=== PATIENT | male | born 1990 | race American Indian/Alaskan Native ===

== ENCOUNTER 2022-02-26 18:49 | Inpatient (IN) | payer MEDICAID, OTHER ==
[2022-02-26] MEDS ORDERED: MAG HYDROX/AL HYDROX/SIMETH 30 ML CUP PO PRN (19:11)
[2022-02-26] MEDS ORDERED: MAGNESIUM HYDROXIDE 2,400 MG/10 ML CUP PO PRN (19:11)
[2022-02-26] MEDS ORDERED: HALOPERIDOL LACTATE 5 MG/ML 1 ML VIAL IM PRN (19:11)
[2022-02-26] MEDS ORDERED: LORazepam 2 MG/ML INJ IM PRN (19:15)
[2022-02-27] MEDS ORDERED: NICOTINE 21MG/24HR PATCH TRANSDERM SCH (09:00)
[2022-02-27] MEDS ORDERED: METHADONE 10 MG TAB PO SCH (09:00)
[2022-02-27] MEDS: NICOTINE GUM (POLACRILEX) 2 MG GUM BUCCAL PRN ×3 (11:35→19:42)
[2022-02-27] MEDS: QUEtiapine 25 MG TAB PO SCH ×3 (12:45→20:23)
[2022-02-27] MEDS: busPIRone HCl 5 MG TAB PO SCH ×4 (12:46→20:23)
[2022-02-27] MEDS: QUEtiapine 100 MG TAB PO SCH ×2 (12:46→20:23)
[2022-02-27] MEDS: LORazepam 1 MG TAB PO PRN ×2 (13:26→21:29)
[2022-02-27] MEDS ORDERED: METHADONE 10 MG TAB PO ONE (14:08)
--- NOTE | 2022-02-27 16:31 | P.CONS ---
History of Present Illness - Reason for Consult Consult date: 02/27/22 Medical management - History of Present Illness Patient is a 31-year-old male with PMH of Gullian Tilden syndrome, previous history of heroin abuse that presents to [facility] for psychiatric evaluation. He has been admitted in the mental health unit for further evaluation. We have been consulted for medical management of this patient. Patient reports neuropathic pain in his bilateral lower extremities. He reports taking Lyrica 150 mg by mouth twice a day along with methadone 130 mg by mouth daily for pain control. He is requesting his home medications be restarted. He otherwise has no complaints. He denies any headache, lower lalita edema, nausea vomiting, fever or chills, cough, chest pain, shortness breath, palpitations, changes in urination or bowel habits. No changes in appetite or weight. He denies any dizziness, numbness/weakness/tingling of the extremities. Next Review of systems has been performed and is negative except above. General: [non toxic], [no distress], [appears at stated age] Derm: [warm], [dry] Head: [atraumatic], [normocephalic], [symmetric] Eyes: [EOMI], [no lid lag], [anicteric sclera] Mouth: [no lip lesion], [mucus membranes moist] Cardiovascular: [S1S2 reg], [no murmur] Lungs: [CTA bilateral], [no rhonchi, no rales] , [no accessory muscle use] Abdominal: [soft], [ nontender to palpation], [no guarding], [no appreciable organomegaly] Ext: [no gross muscle atrophy], [no edema], [no contractures] Neuro: [ CN II-XI grossly intact], [no focal neuro deficits] Psych: [Alert], [oriented], [appropriate affect] His vital signs are being reviewed and is within normal limits. #History of Gullian Tilden syndrome #Chronic pain and history of opiate abuse #Smoker Patient be restarted on Lyrica 50 mg by mouth twice a day. He has been restarted on methadone home dose as per psychiatry. Patient has been encouraged to quit smoking. He has been offered a nicotine patch. Urinalysis, TSH, lipid panel and hemoglobin A1c ordered. Rest of management as per psychiatry. Thank you for this consultation. Please call [facility] with additional questions or concerns. Past Medical History Additional Past Medical History / Comment(s): Destinee Ramos's History of Any Multi-Drug Resistant Organisms: None Reported Past Surgical History: No Surgical Hx Reported Past Anesthesia/Blood Transfusion Reactions: No Reported Reaction Smoking Status: Current every day smoker Medications and Allergies Home Medications Medication Instructions Recorded Confirmed Type LORazepam [Ativan] 1 mg PO BID 02/27/22 02/27/22 History Magnesium 200 mg PO DAILY 02/27/22 02/27/22 History Methadone [Dolophine] 120 mg PO DAILY 02/27/22 02/27/22 History PARoxetine [Paxil] 20 mg PO DAILY 02/27/22 02/27/22 History QUEtiapine [SEROquel] 25 mg PO BID 02/27/22 02/27/22 History QUEtiapine [SEROquel] 100 mg PO HS 02/27/22 02/27/22 History busPIRone HCl [Buspar] 5 mg PO BID 02/27/22 02/27/22 History traZODone HCL [Desyrel] 100 mg PO HS 02/27/22 02/27/22 History Allergies Allergy/AdvReac Type Severity Reaction Status Date / Time No Known Allergies Allergy Verified 02/26/22 19:08 Physical Exam Vitals: Vital Signs Temp Pulse Resp BP Pulse Ox 02/27/22 10:49 97.5 F L 78 18 112/76 95 Intake and Output 02/27/22 02/27/22 02/27/22 06:59 14:59 22:59 Other: Weight 71.3 kg
[2022-02-27] MEDS: haloperidoL 5 MG TAB PO PRN (16:55)
[2022-02-27] MEDS: PREGABALIN 75 MG CAP PO SCH ×2 (16:55→21:29)
[2022-02-28] MEDS: QUEtiapine 25 MG TAB PO SCH (10:10)
[2022-02-28] MEDS: PREGABALIN 75 MG CAP PO SCH ×2 (10:10→20:02)
[2022-02-28] MEDS: METHADONE 10 MG TAB PO SCH (10:11)
[2022-02-28] MEDS: busPIRone HCl 5 MG TAB PO SCH (10:11)
--- NOTE | 2022-02-28 10:39 | P.HP ---
Psychiatric H&P - . H&P Date: 02/28/22 History & Physical: Allergies Allergy/AdvReac Type Severity Reaction Status Date / Time No Known Allergies Allergy Verified 02/26/22 19:08 Vital Signs Temp 98.7 F 02/28/22 06:42 Pulse 68 02/28/22 06:42 Resp 16 02/28/22 06:42 BP 94/51 02/28/22 06:42 Pulse Ox 95 02/27/22 10:49 FiO2 Intake & Output 02/27/22 02/28/22 02/28/22 18:59 06:59 18:59 Weight 71.3 kg 02/28/22 10:26 IDENTIFYING DATA: Patient is a 31-year-old male who currently lives with his girlfriend and is unemployed. They own a house together. She has 1 son. HPI: Patient presented to the hospital initially complaining of depression and suicidal thoughts. Patient has history of polysubstance abuse including opiate dependence on agonist therapy and methadone. Patient was transferred from [facility] on a petition and certificate. Patient was seen today for evaluation and agreeable to speak to principal technical writer. He appeared to be fairly anxious when speaking about her. He states that he is feeling more more depressed lately. He states that he is also having suicidal thoughts for the past week or so. He claims that he has been off his medications for depression for about a week now. He claims that he went to go filled medications however he is not able to get hold of his doctor to have them refilled. He states that he was recently at another psychiatric unit and does not remember which medications he supposed to be on. He states that his anxiety is also elevated. 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 He states that he has a history of cutting himself and also opiate dependence. He claims that he wanted to grab a knife and cut himself however at this time he is having suicidal thoughts however no intent or plan while on the unit. He is denying any homicidal ideations today. at this time patient denies any auditory or visual hallucinations. Patient denies any flight of ideas racing thoughts and increased in goal directed behavior. Patient admits to using cigarettes daily, claims that he smokes marijuana frequently. He states that he has been sober off of heroin for about a year now and is currently on methadone dosing at [facility]. He claims that he has a history of manic-type episodes where he has a lot of energy and does not need to sleep. PAST PSYCHIATRIC HISTORY: Patient states that she has a history of depression and anxiety. He claims that he cannot remember his medications that he is on however does remember Seroquel and Paxil. He states that he was last psychiatrically hospitalized about a month ago at [facility]. Patient denies any psychiatric outpatient follow-up. He claims that he has attempted to cut himself multiple times in the past and also hang himself. PMH: As per medicine H&P ALLERGIES: as per EMR CHEMICAL DEPENDENCY HISTORY: as per HPI FAMILY PSYCHIATRIC/SUBSTANCE USE HISTORY: denies SOCIAL HISTORY: Patient was born and raised in [place]. He states that he completed his high school and also bachelors in [employer] arts. 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 He states that he went to skilled nursing for possession about 5 years ago. He has one son and lives with his girlfriend in a house. He is unemployed. MENTAL STATUS EXAM: General Appearance: Patient appears to be thin, multiple tattoos, long hair and glasses, stated age is alert, directable, and attempts to cooperate. There is to be anxious Patient appears to have poor hygiene and grooming. Behavior: Patient is seated without any agitated behavior. Appears to be anxious. Attempts to cooperate. Speech: Patient's speech is fluent and nonpressured. Mood/Affect: Patient reports their mood is depressed and anxious, affect is congruent Suicidality/Homicidality: Patient denies having any homicidal ideation intent or plan. He claims that he is having suicidal thoughts, no intent or plan. Perceptions: Patient denies any visual hallucinations and denies any auditory hallucinations Though content/process: There is no evidence of any delusional thought content and thought process is linear and goal-directed. He is focused on his symptoms. Memory and concentration: AOX3, grossly intact for the purposes of this session. Can spell "WORLD" backwards Judgment and insight: poor STRENGTHS/WEAKNESSES: strength is that patient is resilient. Weakness is that patient has poor judgment and is impulsive INTELLECT: average IMPRESSIONS: Bipolar depression Anxiety disorder unspecified Opioid dependence, currently on agonist therapy Cannabis use disorder mild Nicotine dependence PLAN: -Patient is admitted under voluntary status to MHU for stabilization of psychiatric symptoms and safety. Patient has signed adult voluntary form and medication consent and is placed in patient's chart. -Medications : Will start patient on Zoloft 50 mg daily for mood/anxiety, increase BuSpar to 20 mg twice a day for anxiety. Decrease Seroquel to 100 mg daily at bedtime for mood stabilization/insomnia. -Ativan and Haldol PRN for agitation/aggression -Patient was counselled on substance abuse and desired to cut back on use -Patient was informed of the risks, benefits and side effects of the medication and patient verbally consented to taking the medications. Patient signed med consent form and was placed in chart. -Internal Medicine consult to perform medical evaluation and physical. -NRT - nicotine patch -SW on board for discharge planning. Encourage patient to participate in groups to work on coping skills.
[2022-02-28] MEDS: SERTRALINE 50 MG TAB PO SCH (11:17)
[2022-02-28] MEDS: LORazepam 1 MG TAB PO PRN ×2 (11:19→18:35)
[2022-02-28] MEDS: NICOTINE GUM (POLACRILEX) 2 MG GUM BUCCAL PRN ×2 (12:16→18:35)
[2022-02-28] MEDS: haloperidoL 5 MG TAB PO PRN ×2 (13:23→18:35)
[2022-02-28] MEDS: busPIRone HCl 10 MG TAB PO SCH (20:02)
[2022-02-28] MEDS: QUEtiapine 100 MG TAB PO SCH (20:02)
[2022-03-01 02:00] LABS: Chol/HDL Ratio 3.03 Ratio; LDL Cholesterol,Calculated 73.8 mg/dL (0.0-131.0)
[2022-03-01] MEDS: NICOTINE GUM (POLACRILEX) 2 MG GUM BUCCAL PRN ×4 (06:58→19:34)
[2022-03-01] MEDS: LORazepam 1 MG TAB PO PRN (06:58)
[2022-03-01] MEDS: busPIRone HCl 10 MG TAB PO SCH ×2 (08:29→20:19)
[2022-03-01] MEDS: METHADONE 10 MG TAB PO SCH (08:29)
[2022-03-01] MEDS: SERTRALINE 50 MG TAB PO SCH (08:30)
[2022-03-01] MEDS: PREGABALIN 75 MG CAP PO SCH ×2 (08:30→20:22)
--- NOTE | 2022-03-01 08:43 | P.PN ---
Progress Note - Text Progress Note Date: 03/01/22 Interval History: Patient was seen wandering the hallways after receiving medications and was di rectable and agreeable to speak with manual writer in the office. Patient was noted to be argumentative with nurse earlier on this morning and spoke about this during conversation with manual writer today. Irrigation Equipment Installer explained the privacy of others on the unit and the different rules and patient was able to verbalize understanding. He states that he is still feeling depressed and anxious and claims he feels he is doing some mild improvement with the medications. He states that he needed to take a Haldol prn last night and states that "I felt that I wasn't going to sleep last night" and then took the Seroquel and was able to sleep fairly last name. He was advised to try to limit the prns as a goal. He claims that he has been going to groups and participating as best as he can. He states that he spoke with his significant other over the phone yesterday and states that "she is worried about me getting better". He claims that he is still having suicidal thoughts however these have been improving mildly since yesterday. At this time patient denies any homical ideations, intent or plan. Patient denies any auditory, visual hallucinations and denies any paranoia or delusions. Patient denies any side effects from the medications and has been compliant with meds. Mental Status Exam: Behavior: Patient is seated without any agitated behavior. Appears to be less anxious. Attempts to cooperate. Speech: Patient's speech is fluent and nonpressured. Mood/Affect: Patient reports their mood is depressed and anxious, proving mildly, affect is congruent and constricted Suicidality/Homicidality: Patient denies having any homicidal ideation intent or plan. He claims that he is having suicidal thoughts, no intent or plan. Perceptions: Patient denies any visual hallucinations and denies any auditory hallucinations Though content/process: There is no evidence of any delusional thought content and thought process is linear and goal-directed. less focused on his symptoms. Memory and concentration: AOX3, grossly intact for the purposes of this session. Judgment and insight: poor, improving mildly IMPRESSIONS: Bipolar depression Anxiety disorder unspecified Opioid dependence, currently on agonist therapy Cannabis use disorder mild Nicotine dependence Plan: -Patient continues to meet criteria for inpatient psychiatric admission for symptom stabilization and safety. Patient has signed adult voluntary form and medication consent and was placed in patient's chart. -Medications: increase Zoloft 100 mg daily for mood/anxiety, BuSpar to 20 mg twice a day for anxiety. Increase Seroquel to 150 mg daily at bedtime for mood stabilization/insomnia. -When necessary Ativan and Haldol for agitation/aggression. -NRT - nicotine patch -SW on board for discharge planning. Encouraged the patient to participate in milieu.
[2022-03-01] MEDS ORDERED: SERTRALINE 50 MG TAB PO ONE (08:45)
[2022-03-01] MEDS: LORazepam 0.5 MG TAB PO PRN ×2 (14:52→20:22)
[2022-03-01] MEDS: QUEtiapine 100 MG TAB PO SCH (20:19)
[2022-03-02] MEDS: PREGABALIN 75 MG CAP PO SCH (08:17)
[2022-03-02] MEDS: busPIRone HCl 10 MG TAB PO SCH (08:18)
[2022-03-02] MEDS: METHADONE 10 MG TAB PO SCH (08:18)
[2022-03-02] MEDS: ACETAMINOPHEN TAB 325 MG TAB PO PRN (08:19)
[2022-03-02] MEDS: NICOTINE GUM (POLACRILEX) 2 MG GUM BUCCAL PRN ×3 (08:23→18:19)
[2022-03-02] MEDS ORDERED: SERTRALINE 100 MG TAB PO SCH (09:00)
[2022-03-02] MEDS: LORazepam 0.5 MG TAB PO PRN ×2 (10:08→18:19)
--- NOTE | 2022-03-02 10:36 | P.PN ---
Progress Note - Text Progress Note Date: 03/02/22 Interval History: Patient was seen wandering the hallways after receiving medications this morning and was directable and agreeable to speak with video games storywriter in the office. Patient appears to be more directable during conversation today however continues to report significant anxiety. He also states that he still feeling depressed and was having suicidal thoughts earlier. He did not have any plan at all. He claims that medications have been helping however was mainly focused on receiving more medications for his anxiety. He claims that he is going to some groups at this time however was fairly vague about what he is learning. He states that he was not able to sleep very well last night however did still report about 5-6 hours. He claims that he would like to try Seroquel in the morning. We discussed other options for medications including Vistaril when necessary which she is agreeable to try. Claims have fair appetite. At this time patient denies any homical ideations, intent or plan. Patient denies any auditory, visual hallucinations and denies any paranoia or delusions. Patient denies any side effects from the medications and has been compliant with meds. Mental Status Exam: Behavior: Patient is seated without any agitated behavior. Appears to be anxious. Attempts to cooperate. Speech: Patient's speech is fluent and nonpressured. shaky Mood/Affect: Patient reports their mood is depressed and anxious, improving mildly, affect is congruent and constricted Suicidality/Homicidality: Patient denies having any homicidal ideation intent or plan. He claims that he is having suicidal thoughts, no intent or plan. Perceptions: Patient denies any visual hallucinations and denies any auditory hallucinations Though content/process: There is no evidence of any delusional thought content and thought process is linear and goal-directed. focuse on his anxiety and me dications. Memory and concentration: AOX3, grossly intact for the purposes of this session. Judgment and insight: poor, improving mildly IMPRESSIONS: Bipolar depression Anxiety disorder unspecified Opioid dependence, currently on agonist therapy Cannabis use disorder mild Nicotine dependence Plan: -Patient continues to meet criteria for inpatient psychiatric admission for symptom stabilization and safety. Patient has signed adult voluntary form and medication consent and was placed in patient's chart. -Medications: increase Zoloft 150 mg daily for mood/anxiety, BuSpar to 30 mg twice a day for anxiety. Increase Seroquel to 150 mg daily at bedtime + 50 mg daily for mood stabilization/insomnia. added vistaril prn for anxiety. -When necessary Ativan and Haldol for agitation/aggression. -NRT - nicotine patch -SW on board for discharge planning. Encouraged the patient to participate in milieu. likely discharge back home next week once patient is more psychiatrically stabilized
[2022-03-02] MEDS: QUEtiapine 50 MG TAB PO SCH (10:40)
[2022-03-02 10:47] LABS: Appearance,Urine Clear (Clear); Bilirubin,Urine Negative (Negative); Blood,Urine Negative (Negative); Color,Urine Yellow; Glucose,Urine (UA) Negative (Negative); Ketones,Urine Negative (Negative); Leukocyte Esterase,Urine Negative (Negative); Nitrite,Urine Negative (Negative); Protein,Urine Negative (Negative); Specific Gravity,Urine 1.013 (1.001-1.035); Urobilinogen,Urine <2.0 mg/dL (<2.0)
[2022-03-03] MEDS: busPIRone HCl 10 MG TAB PO SCH ×3 (01:53→20:17)
[2022-03-03] MEDS: PREGABALIN 75 MG CAP PO SCH ×3 (01:53→20:21)
[2022-03-03] MEDS: QUEtiapine 100 MG TAB PO SCH ×2 (01:54→20:18)
[2022-03-03] MEDS: NICOTINE GUM (POLACRILEX) 2 MG GUM BUCCAL PRN ×3 (07:48→18:24)
[2022-03-03] MEDS: ACETAMINOPHEN TAB 325 MG TAB PO PRN (07:48)
[2022-03-03] MEDS: SERTRALINE 50 MG TAB PO SCH (08:33)
[2022-03-03] MEDS: QUEtiapine 50 MG TAB PO SCH (08:33)
[2022-03-03] MEDS: METHADONE 10 MG TAB PO SCH (08:35)
[2022-03-03] MEDS: hydrOXYzine pamoate 25 MG CAP PO PRN (09:38)
[2022-03-03] MEDS: LORazepam 0.5 MG TAB PO PRN ×2 (11:03→20:21)
--- NOTE | 2022-03-03 20:58 | P.PN ---
Progress Note - Text Progress Note Date: 03/03/22 Interval History: Patient was directable and agreeable to speak with justowriter operator in the office. He rep orts improved sleep last night, reports good mood and appetite. At this time patient denies any homical ideations, intent or plan. Patient denies any auditory, visual hallucinations and denies any paranoia or delusions. Patient denies any side effects from the medications and has been compliant with meds. Mental Status Exam: Appearance: Appears stated age Behavior: Patient is not agitated. Attempts to cooperate. Speech: Patient's speech is fluent and nonpressured. Mood/Affect: Patient reports their mood is "pretty good today", affect is euthymic Suicidality/Homicidality: Patient denies having any homicidal or suicidal ideation intent or plan. Perceptions: Patient denies any visual hallucinations and denies any auditory hallucinations Though content/process: There is no evidence of any delusional thought content and thought process is linear and goal-directed. Memory and concentration: AOX3, grossly intact for the purposes of this session. Judgment and insight: improving mildly IMPRESSIONS: Bipolar depression Anxiety disorder unspecified Opioid dependence, currently on agonist therapy Cannabis use disorder mild Nicotine dependence Plan: -Patient continues to meet criteria for inpatient psychiatric admission for symptom stabilization and safety. -Medications: Continue Zoloft 150 mg daily for mood/anxiety, and BuSpar to 30 mg twice a day for anxiety. Continue Seroquel 150 mg daily at bedtime + 50 mg daily for mood stabilization/insomnia. Continue vistaril prn for anxiety. -When necessary Ativan and Haldol for agitation/aggression. -NRT - nicotine patch - Encouraged the patient to participate in milieu.
[2022-03-04] MEDS: busPIRone HCl 10 MG TAB PO SCH ×2 (08:28→20:07)
[2022-03-04] MEDS: SERTRALINE 50 MG TAB PO SCH (08:28)
[2022-03-04] MEDS: METHADONE 10 MG TAB PO SCH (08:28)
[2022-03-04] MEDS: QUEtiapine 50 MG TAB PO SCH (08:28)
[2022-03-04] MEDS: PREGABALIN 75 MG CAP PO SCH ×2 (08:28→20:07)
[2022-03-04] MEDS: LORazepam 0.5 MG TAB PO PRN (08:29)
[2022-03-04] MEDS: ACETAMINOPHEN TAB 325 MG TAB PO PRN ×2 (08:30→17:18)
[2022-03-04] MEDS: NICOTINE GUM (POLACRILEX) 2 MG GUM BUCCAL PRN ×4 (08:48→20:06)
[2022-03-04] MEDS: hydrOXYzine pamoate 25 MG CAP PO PRN (11:55)
[2022-03-04] MEDS ORDERED: PROPRANOLOL 10 MG TAB PO PRN (14:40)
--- NOTE | 2022-03-04 14:44 | P.PN ---
Progress Note - Text Progress Note Date: 03/04/22 Interval History: Patient was directable and agreeable to speak with chart writer. He reports good sleep and appetite, denies depressed mood but continues to endorse anxiety. He asks if his anxiety medication can be increased and we discussed a trial of Propranolol as needed for anxiety and he agrees. At this time patient denies any homicidal ideations, intent or plan. Patient denies any auditory, visual hallucinations and denies any paranoia or delusions. Patient denies any side effects from the m edications and has been compliant with meds. Mental Status Exam: Appearance: Appears stated age, clean casual attire Behavior: Patient is not agitated. Attempts to cooperate. Speech: Patient's speech is fluent and nonpressured. Mood/Affect: Patient reports their mood is "ok but still anxious", affect is congruent Suicidality/Homicidality: Patient denies having any homicidal or suicidal ideation intent or plan. Perceptions: Patient denies any visual hallucinations and denies any auditory hallucinations Though content/process: There is no evidence of any delusional thought content and thought process is linear and goal-directed. Memory and concentration: AOX3, grossly intact for the purposes of this session. Judgment and insight: Improving mildly IMPRESSIONS: Bipolar depression Anxiety disorder unspecified Opioid dependence, currently on agonist therapy Cannabis use disorder mild Nicotine dependence Plan: -Patient continues to meet criteria for inpatient psychiatric admission for symptom stabilization and safety. -Medications: Continue Zoloft 150 mg daily for mood/anxiety, and BuSpar 30 mg twice a day for anxiety. Continue Seroquel 150 mg daily at bedtime + 50 mg daily for mood stabilization/insomnia. Continue vistaril prn for anxiety. Start Propranolol 10 mg TID PRN for anxiety. -When necessary Ativan and Haldol for agitation/aggression. -NRT - nicotine patch -Encouraged the patient to participate in milieu.
[2022-03-04] MEDS: QUEtiapine 100 MG TAB PO SCH (20:07)
[2022-03-05] MEDS: METHADONE 10 MG TAB PO SCH (08:38)
[2022-03-05] MEDS: QUEtiapine 50 MG TAB PO SCH (08:40)
[2022-03-05] MEDS: PREGABALIN 75 MG CAP PO SCH (08:40)
[2022-03-05] MEDS: busPIRone HCl 10 MG TAB PO SCH (08:40)
[2022-03-05] MEDS: SERTRALINE 50 MG TAB PO SCH (08:40)
[2022-03-05] MEDS: NICOTINE GUM (POLACRILEX) 2 MG GUM BUCCAL PRN ×2 (08:44→19:00)
[2022-03-05 09:18] VITALS: BP 116/72; PULSE 86; RESP 18; TEMP 101.4
[2022-03-05] MEDS ORDERED: SERTRALINE 50 MG TAB PO STA (11:07)
--- NOTE | 2022-03-05 11:50 | P.DS ---
Providers Date of admission: 02/27/22 09:47 Expected date of discharge: 03/05/22 Attending physician: Perry Forrest MD Consults: 02/26/22 19:11 Consult Physician Routine Consulting Provider: Diana Jacome Consult Reason/Comments: H and P Do you want consulting provider notified?: Yes Primary care physician: Perry Forrest MD - Discharge Diagnosis(es) (1) Bipolar depression Current Visit: Yes Status: Acute Priority: High (2) Anxiety disorder Current Visit: Yes Status: Acute Priority: Medium (3) Opioid dependence on agonist therapy Current Visit: Yes Status: Acute Priority: Medium (4) Cannabis use disorder, mild, abuse Current Visit: Yes Status: Acute Priority: Medium (5) Nicotine dependence Current Visit: Yes Status: Acute Priority: Low Hospital Course: Admission HPI: Admission note was completed by keno writer/runner "Patient is a 31-year-old male who currently lives with his girlfriend and is unemployed. They own a house together. She has 1 son. Patient presented to the hospital initially complaining of depression and suicidal thoughts. Patient has history of polysubstance abuse including opiate dependence on agonist therapy and methadone. Patient was transferred from [facility] on a petition and certificate. Patient was seen today for evaluation and agreeable to speak to keno writer/runner. He appeared to be fairly anxious when speaking about her. He states that he is feeling more more depressed lately. He states that he is also having suicidal thoughts for the past week or so. He claims that he has been off his medications for depression for about a week now. He claims that he went to go filled medications however he is not able to get hold of his doctor to have them refilled. He states that he was recently at another psychiatric unit and does not remember which medications he supposed to be on. He states that his anxiety is also elevated. 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 He states that he has a history of cutting himself and also opiate dependence. He claims that he wanted to grab a knife and cut himself however at this time he is having suicidal thoughts however no intent or plan while on the unit. He is denying any homicidal ideations today. at this time patient denies any auditory or visual hallucinations. Patient denies any flight of ideas racing thoughts and increased in goal directed behavior. Patient admits to using cigarettes daily, claims that he smokes marijuana frequently. He states that he has been sober off of heroin for about a year now and is currently on methadone dosing at [facility]. He claims that he has a history of manic-type episodes where he has a lot of energy and does not need to sleep." Hospital course: Upon admission to the unit patient was directable and agreeable to commence treatment and signed adult voluntary form . Patient got along well with other patients on the unit and followed unit protocol. Patient was compliant with the medications and denied any side effects throughout hospital course. Patient was started on Zoloft and increased to a dose of 200 mg daily for mood/anxiety. Patient was also started on BuSpar increased to a dose of 30 mg twice a day for anxiety, patient was agreeable to try Seroquel for mood adjunct/insomnia/anxiety. Patient was started on Seroquel and increased to a dose of 200 mg daily at bedtime +50 mg daily. Propranolol when necessary for anxiety. Patient spoke of his stressors and engaged in therapy both group and individual. Patient was also seen by medical team for history and physical exam. Throughout the course of the hospitalization patient gradually improved with regards to mood, anxiety, sleep and returned back to their baseline level of functioning. Patient did develop fever, cough and malaise and tested positive for covid-19 while on the unit and had to isolate in his room. On the day of discharge patient denied any suicidal or homicidal ideations intent or plan denied any auditory or visual hallucinations. Patient endorsed wanting to live for his future and for life. The patient denied any access to guns or weapons. Patient denied any paranoia and did not endorse any delusions. Patient does have a significant history of substance abuse and was counseled on abstaining from all substances including alcohol and marijuana. Patient was offered however declined inpatient substance-abuse rehab. Patient was also counseled on the medications and need for regular compliance and was encouraged to follow-up with their outpatient appointment for mental health and also for primary care. Prior to discharge a family meeting will be arranged by social work nurse to answer any questions and ensure safety upon discharge. Mental status exam: General Appearance: Patient appears to be tall, wearing glasses, stated age is alert, pleasant, and cooperative. Patient is in no acute distress and has imp roved hygiene and grooming Behavior: Patient is calmly seated without any agitated behavior. Speech: Patient's speech is fluent and nonpressured. Mood/Affect: Patient reports their mood is "better", affect is congruent. Suicidality/Homicidality: Patient denies having any suicidal or homicidal ideation intent or plan. Perceptions: Patient denies any auditory or visual hallucinations. Though content/process: There is no evidence of any delusional thought content and thought process is linear and goal-directed. more future oriented Memory and concentration: AOX3, grossly intact for the purposes of this session. Can spell "WORLD" backwards correctly. Judgment and insight: chronically poor, however has improved with guarded prognosis Impression: Bipolar depression Cannabis use disorder mild Opioid dependence currently on agonist therapy Anxiety disorder unspecified Nicotine dependence Plan: -Continue with discharge today as patient has improved and stabilized psychiatrically and is not currently an imminent threat to himself and/or others. Patient will remain at chronically elevated risk for harm to self and/or others due to his impulsivity and polysubstance abuse. -Continue medications: Seroquel 200 mg daily at bedtime +50 mg daily for mood stabilization/sleep, BuSpar 30 mg twice a day for anxiety, Zoloft 200 mg daily for mood/anxiety, propranolol 10 mg twice a day when necessary for anxiety. -Patient was counseled on the need for medication compliance and appropriate follow-up at mental health and also primary care for medical issues. Patient verbalized understanding and agreed. -Social work to arrange for and conduct family meeting to ensure safety upon discharge and answer any questions/concerns. Social work also to arrange for patients follow up appointments with [facility] for psychiatric care along with follow up with primary care provider. -Patient counseled on abstaining from recreational drugs and marijuana and alcohol. Was informed/educated on the adverse effects on their physical and mental health. Patient verbally agreed and understood. Patient was offered substance abuse treatment however declined at this time. -Patient was instructed to return to the hospital or seek immediate medical care if their psychiatric or medical symptoms do worsen or reoccur. Allergies Allergy/AdvReac Type Severity Reaction Status Date / Time No Known Allergies Allergy Verified 02/26/22 19:[address] Glu mg/dL 97 02/28/22 14:04 Hemoglobin A1c 5.0 % (0.0-6.0) 02/28/22 14:04 Triglycerides 140.00 mg/dL (0.00-149.00) 02/28/22 14:04 Cholesterol 152.00 mg/dL (0.00-200.00) 02/28/22 14:04 LDL Cholesterol, Calc 73.8 mg/dL (0.0-131.0) 02/28/22 14:04 VLDL Cholesterol, Calc 28.00 mg/dL (5.00-40.00) 02/28/22 14:04 HDL Cholesterol 50.20 mg/dL (40.00-60.00) 02/28/22 14:04 Cholesterol/HDL Ratio 3.03 Ratio 02/28/22 14:04 TSH 1.230 mIU/L (0.465-4.680) 02/28/22 14:04 Urine Color Yellow 03/02/22 10:23 Urine Appearance Clear (Clear) 03/02/22 10:23 Urine pH 7.0 (5.0-8.0) 03/02/22 10:23 Ur Specific [place] 1.013 (1.001-1.035) 03/02/22 10:23 Urine Protein Negative (Negative) 03/02/22 10:23 Urine Glucose (UA) Negative (Negative) 03/02/22 10:23 Urine Ketones Negative (Negative) 03/02/22 10:23 Urine Blood Negative (Negative) 03/02/22 10:23 Urine Nitrite Negative (Negative) 03/02/22 10:23 Urine Bilirubin Negative (Negative) 03/02/22 10:23 Urine Urobilinogen <2.0 mg/dL (<2.0) 03/02/22 10:23 Ur Leukocyte Esterase Negative (Negative) 03/02/22 10:23 Coronavirus (PCR) Detected (Not Detectd) A 03/05/22 09:03 Vital Signs Temp 101.4 F H 03/05/22 09:16 Pulse 86 03/05/22 09:16 Resp 18 03/05/22 09:16 BP 116/72 03/05/22 09:16 Pulse Ox 99 03/05/22 06:45 FiO2 Intake & Output 03/04/22 03/05/22 03/05/22 18:59 06:59 18:59 Weight 77.5 kg Patient Condition at Discharge: Stable Plan - Discharge Summary Discharge Rx Participant: No New Discharge Prescriptions: New Methadone [Dolophine] 130 mg PO DAILY tab Pregabalin [Lyrica] 150 mg PO BID 14 Days cap Nicotine Gum (Polacrilex) [Nicorette] 2 mg BUCCAL Q4HR PRN 28 Days pieceofgum PRN Reason: Nicotine Cravings QUEtiapine [SEROquel] 200 mg PO HS 30 Days tab hydrOXYzine pamoate [Vistaril] 25 mg PO BID PRN 14 Days cap PRN Reason: Anxiety busPIRone HCl [Buspar] 30 mg PO BID 30 Days tab Propranolol [Inderal] 10 mg PO BID PRN 14 Days tab PRN Reason: Anxiety QUEtiapine [SEROquel] 50 mg PO DAILY 30 Days tab Sertraline [Zoloft] 200 mg PO DAILY 30 Days tab Discontinued QUEtiapine [SEROquel] 100 mg PO HS QUEtiapine [SEROquel] 25 mg PO BID PARoxetine [Paxil] 20 mg PO DAILY busPIRone HCl [Buspar] 5 mg PO BID traZODone HCL [Desyrel] 100 mg PO HS LORazepam [Ativan] 1 mg PO BID Methadone [Dolophine] 130 mg PO DAILY Magnesium 200 mg PO DAILY Discharge Medication List Methadone [Dolophine] 130 mg PO DAILY tab 03/05/22 [Rx] Nicotine Gum (Polacrilex) [Nicorette] 2 mg BUCCAL Q4HR PRN 28 Days pieceofgum 03/05/22 [Rx] Pregabalin [Lyrica] 150 mg PO BID 14 Days cap 03/05/22 [Rx] Propranolol [Inderal] 10 mg PO BID PRN 14 Days tab 03/05/22 [Rx] QUEtiapine [SEROquel] 50 mg PO DAILY 30 Days tab 03/05/22 [Rx] QUEtiapine [SEROquel] 200 mg PO HS 30 Days tab 03/05/22 [Rx] Sertraline [Zoloft] 200 mg PO DAILY 30 Days tab 03/05/22 [Rx] busPIRone HCl [Buspar] 30 mg PO BID 30 Days tab 03/05/22 [Rx] hydrOXYzine pamoate [Vistaril] 25 mg PO BID PRN 14 Days cap 03/05/22 [Rx] Activity/Diet/Wound Care/Special Instructions: Avoid the use of street drugs and alcohol. Take all prescriptions as prescribed. When you are in need of refills on your medications, please contact your medical provider and/or outpatient psychiatrist to have this done. Please go to scheduled outpatient appointment for aftercare treatment. If symptoms return or become worse, call the crisis line at and/or go to the nearest emergency room for evaluation. Discharge Disposition: HOME SELF-CARE
[2022-03-05] MEDS: LORazepam 0.5 MG TAB PO PRN (14:01)
[2022-03-05] MEDS ORDERED: QUEtiapine 200 MG TAB PO SCH (21:00)
[2022-03-06] MEDS ORDERED: SERTRALINE 100 MG TAB PO SCH (09:00)
== END 2022-03-05 19:13 | disposition home or self-care (01) | DRG 885 ==
LOC: 3MHU 02-27 09:47
PROVIDERS: ADMIT Psychiatry & Neurology Psychiatry; ATTEND Psychiatry & Neurology Psychiatry
DX: F31.30 Bipolar disorder, current episode depressed, mild or moderate severity, unspecified (principal); U07.1 COVID-19; F11.20 Opioid dependence, uncomplicated; R45.851 Suicidal ideations; F12.10 Cannabis abuse, uncomplicated; G89.29 Other chronic pain; F17.210 Nicotine dependence, cigarettes, uncomplicated; F41.9 Anxiety disorder, unspecified; G47.00 Insomnia, unspecified; Z79.899 Other long term (current) drug therapy; Z91.52 Personal history of nonsuicidal self-harm; Z56.0 Unemployment, unspecified; Z71.51 Drug abuse counseling and surveillance of drug abuser
CPT/HCPCS: 80061; 81003; 83036; 84443; 87635; 93005

== ENCOUNTER 2023-05-06 15:33 | Emergency (ER) | payer OTHER ==
[2023-05-06 15:49] VITALS: RESP 18
[2023-05-06] MEDS ORDERED: LORazepam 2 MG/ML INJ IM STA (16:24)
--- NOTE | 2023-05-06 16:36 | ED ---
General Adult HPI - General Chief complaint: Alcohol Stated complaint: detox Time Seen by Provider: 05/06/23 16:03 Source: patient, RN notes reviewed, old records reviewed Mode of arrival: ambulatory Limitations: no limitations - History of Present Illness Initial comments: 2-year-old male presenting for evaluation of tremor. Patient states he is curre ntly detoxing from alcohol. He is abstain for the past 10 days he has been at [facility] [place]. He has not had a drink in the past 10 days. Patient apparently has been on Ativan protocol and he is currently taking 1 mg Ativan twice daily according to the patient. He does have a fine tremor but has had no seizure activity. He is alert and oriented. His vitals are stable. - Related Data Previous Rx's Medication Instructions Recorded Methadone [Dolophine] 130 mg PO DAILY tab 03/05/22 Nicotine Gum (Polacrilex) 2 mg BUCCAL Q4HR PRN 28 Days 03/05/22 [Nicorette] pieceofgum Pregabalin [Lyrica] 150 mg PO BID 14 Days cap 03/05/22 Propranolol [Inderal] 10 mg PO BID PRN 14 Days tab 03/05/22 QUEtiapine [SEROquel] 50 mg PO DAILY 30 Days tab 03/05/22 QUEtiapine [SEROquel] 200 mg PO HS 30 Days tab 03/05/22 Sertraline [Zoloft] 200 mg PO DAILY 30 Days tab 03/05/22 busPIRone HCl [Buspar] 30 mg PO BID 30 Days tab 03/05/22 hydrOXYzine pamoate [Vistaril] 25 mg PO BID PRN 14 Days cap 03/05/22 Allergies Allergy/AdvReac Type Severity Reaction Status Date / Time No Known Allergies Allergy Verified 05/06/23 15:38 Review of Systems ROS Statement: Those systems with pertinent positive or pertinent negative responses have been documented in the HPI. ROS Other: All systems not noted in ROS Statement are negative. Past Medical History Past Medical History: Seizure Disorder Additional Past Medical History / Comment(s): Tee Mitchell, Parasythamy's. seizure with withdrawl History of Any Multi-Drug Resistant Organisms: None Reported Past Surgical History: No Surgical Hx Reported Past Anesthesia/Blood Transfusion Reactions: No Reported Reaction Past Psychological History: Anxiety, Depression, PTSD Smoking Status: Current every day smoker General Exam Limitations: no limitations General appearance: alert, in no apparent distress Head exam: Present: atraumatic, normocephalic Eye exam: Present: normal appearance, PERRL ENT exam: Present: normal exam Neck exam: Present: normal inspection. Absent: tenderness, meningismus Respiratory exam: Present: normal lung sounds bilaterally. Absent: respiratory distress, wheezes Cardiovascular Exam: Present: regular rate, normal rhythm GI/Abdominal exam: Present: soft. Absent: distended, tenderness Extremities exam: Present: normal inspection, normal capillary refill Neurological exam: Present: alert, oriented X3, CN II-XII intact. Absent: motor sensory deficit Psychiatric exam: Present: normal affect, normal mood Skin exam: Present: warm, dry, intact Course Vital Signs 05/06/23 15:35 Temperature 99.4 F Pulse Rate 74 Respiratory 18 Rate Blood Pressure 135/87 O2 Sat by Pulse 96 Oximetry Medical Decision Making - Medical Decision Making Was pt. sent in by a medical professional or institution (, PA, [employer], urgent care, hospital, or jail...) When possible be specific @ -No Did you speak to anyone other than the patient for history (EMS, parent, family, police, friend...)? What history was obtained from this source @ -No Did you review nursing and triage notes (agree or disagree)? Why? @ -I reviewed and agree with nursing and triage notes Were old charts reviewed (outside hosp., previous admission, EMS record, old EKG, old radiological studies, urgent care reports/EKG's, jail records)? Report findings @ -No old charts were reviewed Differential Diagnosis (chest pain, altered mental status, abdominal pain women, abdominal pain men, vaginal bleeding, weakness, fever, dyspnea, syncope, headache, dizziness, GI bleed, back pain, seizure, CVA, palpatations, mental health, musculoskeletal)? @ -[Alcohol withdrawal, delirium tremens EKG interpreted by me (3pts min.). @ -As above X-rays interpreted by me (1pt min.). @ -None done CT interpreted by me (1pt min.). @ -None done U/S interpreted by me (1pt. min.). @ -None done What testing was considered but not performed or refused? (CT, X-rays, U/S, labs)? Why? @ -None What meds were considered but not given or refused? Why? @ -None Did you discuss the management of the patient with other professionals (professionals i.e. , PA, [employer], lab, RT, psych nurse, clinical social work therapist, explosive ordnance disposal specialist, teacher, operational intelligence officer, casework manager)? Give summary @ -No Was smoking cessation discussed for >3mins.? @ -No Was critical care preformed (if so, how long)? @ -No Were there social determinants of health that impacted care today? How? (Homelessness, low income, unemployed, alcoholism, drug addiction, transportation, low edu. Level, literacy, decrease access to med. care, snf, rehab)? @ -Alcohol abuse Was there de-escalation of care discussed even if they declined (Discuss DNR or withdrawal of care, Hospice)? DNR status @ -No What co-morbidities impacted this encounter? (DM, HTN, Smoking, COPD, CAD, Cancer, CVA, ARF, Chemo, Hep., AIDS, mental health diagnosis, sleep apnea, morbid obesity)? @ Alcohol abuse Was patient admitted / discharged? Hospital course, mention meds given and route, prescriptions, significant lab abnormalities, going to OR and other pertinent info. @ 32-year-old male with tremor, currently 10 days sober. Patient is otherwise well-appearing, stable vitals, no signs of hallucination, no vital sign instability. I think patient should return to [facility] for continued treatment per their protocol. Undiagnosed new problem with uncertain prognosis? @ -No Drug Therapy requiring intensive monitoring for toxicity (Heparin, Nitro, Insulin, Cardizem)? @ -No Were any procedures done? @ -No Diagnosis/symptom? @ Anxiety and tremor Acute, or Chronic, or Acute on Chronic? @ -Acute Uncomplicated (without systemic symptoms) or Complicated (systemic symptoms)? @ -default Side effects of treatment? @ -[No] Exacerbation, Progression, or Severe Exacerbation? @ -[No] Poses a threat to life or bodily function? How? (Chest pain, [place], NH, pneumonia, PE, COPD, DKA, ARF, appy, cholecystitis, CVA, Diverticulitis, Homicidal, Suicidal, threat to staff... and all critical care pts) @ -[Low risk at this time Disposition Clinical Impression: Anxiety disorder Disposition: HOME SELF-CARE Condition: Fair Instructions (If sedation given, give patient instructions): Alcohol Use Disorder (ED) Additional Instructions: Please return to [facility] and followed the protocol they have advised. Is patient prescribed a controlled substance at d/c from ED?: No Referrals: None,Stated [Primary Care Provider] - 1-2 days Time of Disposition: 16:36
[2023-05-06 17:43] VITALS: BP 135/83; PULSE 69; TEMP 98.4
== END 2023-05-06 17:38 | disposition home or self-care (01) ==
LOC: EC 15:33
DX: F41.9 Anxiety disorder, unspecified (principal); F17.200 Nicotine dependence, unspecified, uncomplicated
CPT/HCPCS: 99284; 96372; J2060

== ENCOUNTER 2023-09-14 11:46 | Inpatient (IN) | payer OTHER ==
[2023-09-14] MEDS ORDERED: LORazepam 2 MG/ML INJ IV PRN (12:20)
[2023-09-14] MEDS: LORazepam 2 MG/ML INJ IV STA (12:37)
[2023-09-14] MEDS: SODIUM CHLORIDE 0.9% 500 ML 500 ML IV STA (12:38)
[2023-09-14] MEDS: SODIUM CHLORIDE 0.9% 1,000 ML IV STA ×2 (12:38)
[2023-09-14 12:55] LABS: Basophils # (A) 0.1 k/uL (0-0.2); Basophils % (A) 1 %; Eosinophils # (A) 0.4 k/uL (0-0.7); Eosinophils % (A) 6 %; HCT 39.7 % (39.0-53.0); HGB 12.9 gm/dL (13.0-17.5); Lymphocytes # (A) 3.1 k/uL (1.0-4.8); Lymphocytes % (A) 43 %; MCH 28.4 pg (25.0-35.0); MCHC 32.6 g/dL (31.0-37.0); Mean Platelet Volume 7.3; Monocytes # (A) 0.2 k/uL (0-1.0); Monocytes % (A) 2 %; Neutrophils # (A) 3.4 k/uL (1.3-7.7); Neutrophils % (A) 47 %; Platelet Count 299 k/uL (150-450); RBC 4.56 m/uL (4.30-5.90); RDW 12.5 % (11.5-15.5); WBC 7.3 k/uL (3.8-10.6)
[2023-09-14 13:12] LABS: ALT 33 U/L (4-49); AST 45 U/L (17-59); African American GFR (CKD) >90 (>60 ml/min/1.73 sqM); Alcohol <10 mg/dL; Alkaline Phosphatase 70 U/L (38-126); Anion Gap 5 mmol/L; Blood Urea Nitrogen 10 mg/dL (9-20); Calcium 9.4 mg/dL (8.4-10.2); Carbon Dioxide 25 mmol/L (22-30); Chloride 107 mmol/L (98-107); Glucose 90 mg/dL (74-99); Lipase 44 U/L (23-300); Non-African American GFR(CKD) >90 (>60 ml/min/1.73 sqM); Phosphorus 4.5 mg/dL (2.5-4.5); Sodium 137 mmol/L (137-145); Total Bilirubin 0.5 mg/dL (0.2-1.3); Total Protein 6.8 g/dL (6.3-8.2)
--- NOTE | 2023-09-14 13:26 | ED ---
Alcohol HPI - General Chief Complaint: Alcohol Stated Complaint: Hallucinations Time Seen by Provider: 09/14/23 12:19 Source: patient, RN notes reviewed, old records reviewed Mode of arrival: ambulatory Limitations: no limitations - History of Present Illness Initial Comments: This is a 32-year-old male to the ER for evaluation Patient presents today for evaluation regards to shaking weakness altered mental status hallucinations and not feeling well. Patient is having persistent symptoms here in the ER very shaky very lightheaded very dizzy with symptoms of diaphoresis. MD Complaint: alcohol withdrawal Last Drink: unknown -: days(s) Previous Visits for Alcohol Intoxication?: Yes Recent Trauma: Yes Associated Symptoms: nausea, vomiting Treatments Prior to Arrival: none Chronic Alcohol Use: Yes - Related Data Home Medications Medication Instructions Recorded Confirmed Acetaminophen Tab [Tylenol] 650 mg PO QID PRN 09/14/23 09/14/23 Calcium Phos/D3/Magnesium/Zinc 1 tab PO TID PRN 09/14/23 09/14/23 [Cfkwzvp-Led-Qfmz-Vitamin D3] Chlorpheniramine Maleate 4 mg PO Q4H PRN 09/14/23 09/14/23 [Chlor-Trimeton] Escitalopram [Lexapro] 10 mg PO DAILY 09/14/23 09/14/23 Hyoscyamine Sulfate [Levsin] 0.125 mg PO QID PRN 09/14/23 09/14/23 Ibuprofen [Motrin Ib] 600 mg PO Q6H PRN 09/14/23 09/14/23 LORazepam [Ativan] 1 - 2 mg PO Q4-6H PRN 09/14/23 09/14/23 Loperamide HCl [Imodium A-D] 4 mg PO QID PRN 09/14/23 09/14/23 Mag Hydrox/Aluminum Hyd/Simeth 30 ml PO Q4H PRN 09/14/23 09/14/23 [Mylanta Maximum Strength Liq] Methadone [Dolophine] See Taper PO DIRECTED 09/14/23 09/14/23 Multivitamins, Thera [Multivitamin 1 tab PO DAILY 09/14/23 09/14/23 (formulary)] Thiamine [Vitamin B-1] 100 mg PO DAILY 09/14/23 09/14/23 busPIRone HCl [Buspar] 10 mg PO TID@0615,1130,1630 09/14/23 09/14/23 ondansetron HCL [Zofran] 8 mg PO Q6H PRN 09/14/23 09/14/23 traZODone HCL [Desyrel] 50 - 150 mg PO HS 09/14/23 09/14/23 Previous Rx's Medication Instructions Recorded Folic Acid 1 mg PO DAILY #30 tab 09/18/23 chlordiazePOXIDE HCl [Librium] 25 mg PO TID #6 cap 09/18/23 Allergies Allergy/AdvReac Type Severity Reaction Status Date / Time No Known Allergies Allergy Verified 09/21/23 13:29 Review of Systems ROS Statement: Those systems with pertinent positive or pertinent negative responses have been documented in the HPI. ROS Other: All systems not noted in ROS Statement are negative. Past Medical History Past Medical History: Seizure Disorder Additional Past Medical History / Comment(s): Tee Mitchell, Destinee's. seizure with withdrawl History of Any Multi-Drug Resistant Organisms: None Reported Past Surgical History: No Surgical Hx Reported Past Anesthesia/Blood Transfusion Reactions: No Reported Reaction Past Psychological History: Anxiety, Depression, PTSD Smoking Status: Current every day smoker Past Alcohol Use History: Abuse Past Drug Use History: Heroin, Prescription Drug Abuse General Exam Limitations: no limitations General appearance: alert, in no apparent distress Head exam: Present: atraumatic, normocephalic, normal inspection Eye exam: Present: normal appearance, PERRL, EOMI. Absent: scleral icterus, conjunctival injection, periorbital swelling ENT exam: Present: normal exam, mucous membranes moist Neck exam: Present: normal inspection. Absent: tenderness, meningismus, lymphadenopathy Respiratory exam: Present: normal lung sounds bilaterally. Absent: respiratory distress, wheezes, rales, rhonchi, stridor Cardiovascular Exam: Present: regular rate, normal rhythm, normal heart sounds. Absent: systolic murmur, diastolic murmur, rubs, gallop, clicks GI/Abdominal exam: Present: soft, normal bowel sounds. Absent: distended, tenderness, guarding, rebound, rigid Extremities exam: Present: normal inspection, full ROM, normal capillary refill. Absent: tenderness, pedal edema, joint swelling, calf tenderness Back exam: Present: normal inspection Neurological exam: Present: alert, oriented X3, CN II-XII intact Psychiatric exam: Present: normal affect, normal mood Skin exam: Present: warm, dry, intact, normal color. Absent: rash Course Vital Signs 09/14/23 09/14/23 09/14/23 12:12 13:30 15:50 Temperature 98.6 F Pulse Rate 51 L 49 L Respiratory 18 18 18 Rate Blood Pressure 106/73 114/77 O2 Sat by Pulse 97 99 Oximetry 09/14/23 17:50 Temperature Pulse Rate 50 L Respiratory 18 Rate Blood Pressure 129/79 O2 Sat by Pulse 97 Oximetry - Reevaluation(s) Reevaluation #1: 09/14/23 18:54 Medical record is reviewed Reevaluation #2: 09/14/23 18:54 Patient symptoms unchanged Reevaluation #3: 09/14/23 18:54 Patient informed of results and questions answered Reevaluation #4: Was pt. sent in by a medical professional or institution (, TABATHA, COORDINATE MEASURING EQUIPMENT OPERATOR, urgent care, hospital, or longterm...) When possible be specific @ -no Did you speak to anyone other than the patient for history (EMS, parent, family, police, friend...)? What history was obtained from this source @ -no Did you review nursing and triage notes (agree or disagree)? Why? @ -agree Are old charts reviewed (outside hosp., previous admission, EMS record, old EKG, old radiological studies, urgent care reports/EKG's, longterm records)? Report findings @ -yes Differential Diagnosis (chest pain, altered mental status, abdominal pain women, abdominal pain men, vaginal bleeding, weakness, fever, dyspnea, syncope, headache, dizziness, GI bleed, back pain, seizure, CVA, palpatations, mental health, musculoskeletal)? @ -prior EKG interpreted by me (3pts min.). @ -no X-rays interpreted by me (1pt min.). @ -no CT interpreted by me (1pt min.). @ -no U/S interpreted by me (1pt. min.). @ -no What testing was considered but not performed or refused? (CT, X-rays, U/S, labs)? Why? @ -none What meds were considered but not given or refused? Why? @ -none Did you discuss the management of the patient with other professionals (professionals i.e. Dr., PA, COORDINATE MEASURING EQUIPMENT OPERATOR, lab, RT, psych nurse, social service coordinator, functional architect, teacher, first aid officer, adult protective caseworker)? Give summary @ -no Was smoking cessation discussed for >3mins.? @ -no Was critical care preformed (if so, how long)? @ -no Were there social determinants of health that impacted care today? How? (Homelessness, low income, unemployed, alcoholism, drug addiction, transportation, low edu. Level, literacy, decrease access to med. care, half-way, rehab)? @ -none Was there de-escalation of care discussed even if they declined (Discuss DNR or withdrawal of care, Hospice)? DNR status @ -no What co-morbidities impacted this encounter? (DM, HTN, Smoking, COPD, CAD, Cancer, CVA, ARF, Chemo, Hep., AIDS, mental health diagnosis, sleep apnea, morbid obesity)? @ -none Was patient admitted / discharged? Hospital course, mention meds given and route, prescriptions, significant lab abnormalities, going to OR and other pertinent info. @ - 32 male will be admitted for significant alcohol withdrawal acute alcohol withdrawal with hallucinations and significant tremors Admitted Undiagnosed new problem with uncertain prognosis? @ -no Drug Therapy requiring intensive monitoring for toxicity (Heparin, Nitro, Insulin, Cardizem)? @ -no Were any procedures done? @ -no Diagnosis/symptom? @ -Alcohol withdrawal DTs Acute, or Chronic, or Acute on Chronic? @ -Acute Uncomplicated (without systemic symptoms) or Complicated (systemic symptoms)? @ -Complicated Side effects of treatment? @ -no Exacerbation, Progression, or Severe Exacerbation? @ -exacerbation Poses a threat to life or bodily function? How? (Chest pain, [place], [place], pneumonia, PE, COPD, DKA, ARF, appy, cholecystitis, CVA, Diverticulitis, Homicidal, Suicidal, threat to staff... and all critical care pts) @ -yes with significant withdrawal symptoms - Consultations Consultation #1: Spoke with [facility] who agrees to admit this patient Medical Decision Making - Medical Decision Making 32 male will be admitted for significant alcohol withdrawal acute alcohol withdrawal with hallucinations and significant tremors - Lab Data Result diagrams: 09/18/23 05:58 09/18/23 05:58 Lab Results 09/14/23 09/14/23 Range/Units 12:30 12:30 WBC 7.3 (3.8-10.6) k/uL RBC 4.56 (4.30-5.90) m/uL Hgb 12.9 L (13.0-17.5) gm/dL Hct 39.7 (39.0-53.0) % MCV 87.0 (80.0-100.0) fL MCH 28.4 (25.0-35.0) pg MCHC 32.6 (31.0-37.0) g/dL RDW 12.5 (11.5-15.5) % Plt Count 299 (150-450) k/uL MPV 7.3 Neutrophils % 47 % Lymphocytes % 43 % Monocytes % 2 % Eosinophils % 6 % Basophils % 1 % Neutrophils # 3.4 (1.3-7.7) k/uL Lymphocytes # 3.1 (1.0-4.8) k/uL Monocytes # 0.2 (0-1.0) k/uL Eosinophils # 0.4 (0-0.7) k/uL Basophils # 0.1 (0-0.2) k/uL Sodium 137 (137-145) mmol/L Potassium 5.3 H (3.5-5.1) mmol/L Chloride 107 (98-107) mmol/L Carbon Dioxide 25 (22-30) mmol/L Anion Gap 5 mmol/L BUN 10 (9-20) mg/dL Creatinine 0.65 L (0.66-1.25) mg/dL Est GFR (CKD-EPI)AfAm >90 (>60 ml/min/1.73 sqM) Est GFR (CKD-EPI)NonAf >90 (>60 ml/min/1.73 sqM) Glucose 90 (74-99) mg/dL Calcium 9.4 (8.4-10.2) mg/dL Phosphorus 4.5 (2.5-4.5) mg/dL Magnesium 2.0 (1.6-2.3) mg/dL Total Bilirubin 0.5 (0.2-1.3) mg/dL AST 45 (17-59) U/L ALT 33 (4-49) U/L Alkaline Phosphatase 70 (38-126) U/L Total Protein 6.8 (6.3-8.2) g/dL Albumin 4.0 (3.5-5.0) g/dL Lipase 44 (23-300) U/L Serum Alcohol <10 mg/dL Disposition Clinical Impression: Anxiety disorder, Alcohol withdrawal syndrome, Alcohol withdrawal delirium Disposition: ADMITTED IP TO THIS HOSP Condition: Fair Is patient prescribed a controlled substance at d/c from ED?: No Time of Disposition: 17:00
[2023-09-14 14:04] LABS: Potassium 5.3 mmol/L (3.5-5.1)
[2023-09-14] MEDS ORDERED: ONDANSETRON 4 MG/2 ML VIAL IVP PRN (16:59)
[2023-09-14] MEDS ORDERED: NALOXONE 0.4 MG/ML 1 ML VIAL IV PRN (16:59)
[2023-09-14] MEDS: LORazepam 2 MG/ML INJ IV PRN ×2 (20:26→21:20)
--- NOTE | 2023-09-14 23:58 | P.HPIM ---
History of Present Illness H&P Date: 09/14/23 Chief Complaint: Alcohol withdrawal 32-year-old male with history of alcohol abuse and alcohol withdrawal seizures, presents to the ER for evaluation Patient presents today for evaluation regards to shaking weakness altered mental status hallucinations and not feeling well. Patient is having persistent symptoms here in the ER very shaky very lightheaded very dizzy with symptoms of diaphoresis. Patient is not able to provide much history Blood work completed in ED reveals a WBC of 7.3, hemoglobin of 12.9 and platelet count of 299, sodium 137, potassium 5.3, BUN/creatinine of 10/0.65, serum alcohol of less than 10 Review of Systems ROS unobtainable: due to mental status Past Medical History Past Medical History: Seizure Disorder Additional Past Medical History / Comment(s): Destinee Ramos's. seizure with withdrawl History of Any Multi-Drug Resistant Organisms: None Reported Past Surgical History: No Surgical Hx Reported Past Anesthesia/Blood Transfusion Reactions: No Reported Reaction Past Psychological History: Anxiety, Depression, PTSD Smoking Status: Current every day smoker Past Alcohol Use History: Abuse Past Drug Use History: Heroin, Prescription Drug Abuse Medications and Allergies Home Medications Medication Instructions Recorded Confirmed Type Acetaminophen Tab [Tylenol] 650 mg PO QID PRN 09/14/23 09/14/23 History Calcium Phos/D3/Magnesium/Zinc 1 tab PO TID PRN 09/14/23 09/14/23 History [Fqvsvyd-Oqj-Vqee-Vitamin D3] Chlorpheniramine Maleate 4 mg PO Q4H PRN 09/14/23 09/14/23 History [Chlor-Trimeton] Escitalopram [Lexapro] 10 mg PO DAILY 09/14/23 09/14/23 History Hyoscyamine Sulfate [Levsin] 0.125 mg PO QID PRN 09/14/23 09/14/23 History Ibuprofen [Motrin Ib] 600 mg PO Q6H PRN 09/14/23 09/14/23 History LORazepam [Ativan] 1 - 2 mg PO Q4-6H PRN 09/14/23 09/14/23 History Loperamide HCl [Imodium A-D] 4 mg PO QID PRN 09/14/23 09/14/23 History Mag Hydrox/Aluminum Hyd/Simeth 30 ml PO Q4H PRN 09/14/23 09/14/23 History [Mylanta Maximum Strength Liq] Methadone [Dolophine] See Taper PO DIRECTED 09/14/23 09/14/23 History Multivitamins, Thera [Multivitamin 1 tab PO DAILY 09/14/23 09/14/23 History (formulary)] Thiamine [Vitamin B-1] 100 mg PO DAILY 09/14/23 09/14/23 History busPIRone HCl [Buspar] 10 mg PO TID@0615,1130,1630 09/14/23 09/14/23 History ondansetron HCL [Zofran] 8 mg PO Q6H PRN 09/14/23 09/14/23 History traZODone HCL [Desyrel] 50 - 150 mg PO HS 09/14/23 09/14/23 History Allergies Allergy/AdvReac Type Severity Reaction Status Date / Time No Known Allergies Allergy Verified 09/14/23 15:20 Physical Exam Vitals: Vital Signs Temp Pulse Resp BP Pulse Ox 09/14/23 17:50 50 L 18 129/79 97 09/14/23 15:50 49 L 18 114/77 99 09/14/23 13:30 18 09/14/23 12:12 98.6 F 51 L 18 106/73 97 Intake and Output 09/14/23 09/14/23 09/14/23 06:59 14:59 22:59 Other: Weight 77.111 kg - Constitutional General appearance: Present: average body habitus, cooperative, no acute distress - EENT Eyes: Present: anicteric sclerae, EOMI, PERRLA, normal appearance ENT: Present: hearing grossly normal, normal oropharynx Ears: bilateral: normal - Neck Neck: Present: normal ROM. Absent: lymphadenopathy, rigidity, thyromegaly Carotids: negative: bruit present Thyroid: bilateral: normal size, negative: enlarged, nodule - Respiratory Respiratory: bilateral: CTA, negative: rales, rhonchi, wheezing - Cardiovascular Rhythm: regular Heart sounds: normal: S1, S2 Abnormal Heart Sounds: Absent: systolic murmur, diastolic murmur - Gastrointestinal General gastrointestinal: Present: normal bowel sounds, soft. Absent: distended, organomegaly, tenderness - Genitourinary Genitourinary Comment(s): deferred - Integumentary Integumentary: Present: normal turgor. Absent: jaundiced, rash, ulcer - Neurologic Neurologic: Present: CNII-XII intact. Absent: focal deficits - Musculoskeletal Musculoskeletal: Present: gait normal, strength equal bilaterally - Psychiatric Psychiatric: Present: A&O x's 3, appropriate affect, intact judgment & insight Results CBC & Chem 7: 09/14/23 12:30 09/14/23 12:30 Labs: Abnormal Lab Results - Last 24 Hours (Table) 09/14/23 09/14/23 Range/Units 12:30 12:30 Hgb 12.9 L (13.0-17.5) gm/dL Potassium 5.3 H (3.5-5.1) mmol/L Creatinine 0.65 L (0.66-1.25) mg/dL Assessment and Plan Assessment: 1. Alcohol withdrawal delirium -Patient was extremely shaky and hallucinating upon arrival to ED -Has been placed on IV fluids in form of banana bag; CIWA protocol with Ativan -- Social service consult 2. Anxiety disorder; currently on IV Ativan 3. Hyperkalemia; patient has been placed on IV fluid; electrolytes closely and treat as needed DVT prophylaxis; SCDs CODE STATUS; full code
[2023-09-15] MEDS: busPIRone HCl 10 MG TAB PO SCH (06:17)
[2023-09-15] MEDS: ESCITALOPRAM 10 MG TAB PO SCH (08:16)
[2023-09-15] MEDS: FOLIC ACID 1 MG TAB PO SCH (08:16)
[2023-09-15] MEDS: THIAMINE 100 MG TAB PO SCH (08:16)
[2023-09-15] MEDS: MULTIVITAMINS, THERA 1 EACH TAB PO SCH (08:16)
[2023-09-15 09:54] LABS: Basophils # (A) 0.07 X 10*3/uL (0.00-0.10); Basophils % (A) 0.9 %; Eosinophils # (A) 0.47 X 10*3/uL (0.04-0.35); Eosinophils % (A) 5.9 %; HCT 40.8 % (39.6-50.0); HGB 13.2 g/dL (13.0-17.0); Lymphocytes # (A) 2.94 X 10*3/uL (0.90-5.00); Lymphocytes % (A) 36.9 %; MCH 28.7 pg (27.0-32.0); MCHC 32.4 g/dL (32.0-37.0); MCV 88.7 FL (80.0-97.0); Mean Platelet Volume 10.6 FL (9.5-12.2); Monocytes % (A) 3.8 %; NRBC Per 100 WBC 0 X 10*3/uL (0.00-0.01); Neutrophils # (A) 4.16 X 10*3/uL (1.80-7.70); Neutrophils % (A) 52.2 %; Platelet Count 292 X 10*3/uL (140-440); RDW 12.3 % (11.5-14.5); WBC 7.96 X 10*3/uL (4.50-10.00)
[2023-09-15 10:02] LABS: ALT 30 U/L (10-49); AST 29 U/L (14-35); Albumin 3.9 g/dL (3.8-4.9); Alkaline Phosphatase 84 U/L (41-126); BUN/Creat Ratio 14.29 Ratio (12.00-20.00); Calcium 9.3 mg/dL (8.7-10.3); Carbon Dioxide 26.7 mmol/L (21.6-31.8); Chloride 108 mmol/L (96-109); Globulin 2.6 g/dL (1.6-3.3); Glucose 91 mg/dL (70-110); Magnesium 2.2 mg/dL (1.5-2.4); Phosphorus 3.5 mg/dL (2.4-5.1); Potassium 4.7 mmol/L (3.5-5.5); Sodium 140 mmol/L (135-145); Total Bilirubin <0.2 mg/dL (0.3-1.2); Total Protein 6.5 g/dL (6.2-8.2)
[2023-09-15] MEDS: METHADONE 10 MG TAB PO SCH ×2 (11:13→12:12)
[2023-09-15] MEDS: NICOTINE 21MG/24HR PATCH TRANSDERM SCH (11:16)
[2023-09-15] MEDS: traZODone HCL 100 MG TAB PO SCH (22:17)
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
[2023-09-16] MEDS: chlordiazePOXIDE 25 MG CAP PO SCH (14:36)
[2023-09-17] MEDS: LORazepam 2 MG/ML INJ IV PRN (00:51)
--- NOTE | 2023-09-17 06:16 | P.PN ---
Subjective Progress Note Date: 09/16/23 32-year-old male with history of alcohol abuse and alcohol withdrawal seizures, presents to the ER for evaluation Patient presents today for evaluation regards to shaking weakness altered mental status hallucinations and not feeling well. Patient is having persistent symptoms here in the ER very shaky very lightheaded very dizzy with symptoms of diaphoresis. Patient is not able to provide much history Blood work completed in ED reveals a WBC of 7.3, hemoglobin of 12.9 and platelet count of 299, sodium 137, potassium 5.3, BUN/creatinine of 10/0.65, serum alcohol of less than 10 09/16/2023 Patient is seen and evaluated in follow-up maintained on CIWA protocol as well as also receiving scheduled Valium every 6 hours. Will discontinue Valium and initiate Librium taper and continue on CIWA protocol. Encouraged to increase activity as tolerated and oral intake as patient reports he has not been eating. Patient does report some nausea and has been continuing to require IV Ativan. Patient was at [facility] with plans to return for continued alcohol rehab. Psychiatry was consulted and pending as well. Patient denies any suicidal ideation or thoughts of wanting to harm himself or others. Patient is afebrile with no reports of chest pain or shortness of breath. Review of systems: Constitutional: No reports of fatigue, fever, or chills Cardiovascular: No reports of chest pain or palpitations Respiratory: No reports of shortness of breath or cough GI: reports of occasional nausea, no vomiting, or diarrhea : No reports of dysuria or retention Neurovascular: No reports of weakness or numbness All medications have been reviewed Physical exam: Gen: This is a 32-year-old male who is awake, alert and oriented x 3, well- developed, well-nourished. HEENT: Head is atraumatic, normocephalic. Pupils equal, round. Sclerae is anicteric. NECK: Supple. No JVD. No lymphadenopathy. No thyromegaly. LUNGS: Clear to auscultation. No wheezes or rhonchi. No intercostal retractions. HEART: Regular rate and rhythm. No murmur. ABDOMEN: Soft. Bowel sounds are present. No masses. No tenderness. EXTREMITIES: No pedal edema. No calf tenderness. NEUROLOGICAL: Patient is awake, alert and oriented x3. Cranial nerves 2 through 12 are grossly intact. 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 Patient denies any suicidal ideation or thoughts of wanting to harm himself or others Patient is adamant about being no code. Lengthy discussion was had about CODE STATUS and the meaning of no code and patient reports to be in full understanding and continues to request to be no code. Case management/social work following as plan is to return to [facility] for continued rehab Continue Librium taper, wean off IV Ativan, oral Ativan as needed has been ordered as well. Possible discharge planning in the next 24 to 48 hours The impression and plan of care has been dictated by Carolina Mora, Nurse Practitioner as directed. Dr. Maximilian MD I have performed a history and examination and MDM of this patient, discussed the same with the dictator, and agree with the dictator's assessment and plan as written ,documented as a scribe. Based on total visit time, I have performed more than 50% of the visit. Objective - Vital Signs Vital signs: Vital Signs Temp 98.0 F 09/16/23 08:00 Pulse 68 09/16/23 08:00 Resp 15 09/16/23 08:00 BP 110/73 09/16/23 08:00 Pulse Ox 98 09/16/23 08:00 FiO2 Intake & Output 09/15/23 09/16/23 09/16/23 18:59 06:59 18:59 Intake Total 180 Balance 180 Intake: Oral 180 Other: # Voids 4 2 # Bowel Movements 1 - Labs CBC & Chem 7: 09/15/23 05:52 09/15/23 05:52 Labs: Abnormal Lab Results - Last 24 Hours (Table) 09/15/23 Range/Units 05:52 Total Bilirubin <0.2 L (0.3-1.2) mg/dL Albumin/Globulin Ratio 1.50 L (1.60-3.17) Ratio
--- NOTE | 2023-09-18 06:27 | P.PN ---
Subjective Progress Note Date: 09/17/23 32-year-old male with history of alcohol abuse and alcohol withdrawal seizures, presents to the ER for evaluation Patient presents today for evaluation regards to shaking weakness altered mental status hallucinations and not feeling well. Patient is having persistent symptoms here in the ER very shaky very lightheaded very dizzy with symptoms of diaphoresis. Patient is not able to provide much history Blood work completed in ED reveals a WBC of 7.3, hemoglobin of 12.9 and platelet count of 299, sodium 137, potassium 5.3, BUN/creatinine of 10/0.65, serum alcohol of less than 10 09/16/2023 Patient is seen and evaluated in follow-up maintained on CIWA protocol as well as also receiving scheduled Valium every 6 hours. Will discontinue Valium and initiate Librium taper and continue on CIWA protocol. Encouraged to increase activity as tolerated and oral intake as patient reports he has not been eating. Patient does report some nausea and has been continuing to require IV Ativan. Patient was at [place] with plans to return for continued alcohol rehab. Psychiatry was consulted and pending as well. Patient denies any suicidal ideation or thoughts of wanting to harm himself or others. Patient is afebrile with no reports of chest pain or shortness of breath. 09/17/2023 Patient is seen in follow-up currently sitting up in the bed reports he is eating a little better continues with occasional nausea. Patient continues to report withdrawals with significant shaking and having difficulty with ambulating. Will have PT/OT therapy evaluate the patient and continue on CIWA protocol. Patient also continued on Librium taper and will continue. Encouraged to increase activity as tolerated. Plans for returning to [place] on discharge. Discussed possible discharge planning in the next 24 hours. Encourage nursing staff to use oral Ativan and limit the use of IV Ativan. Review of systems: Constitutional: No reports of fatigue, fever, or chills Cardiovascular: No reports of chest pain or palpitations Respiratory: No reports of shortness of breath or cough GI: reports of occasional nausea, no vomiting, or diarrhea : No reports of dysuria or retention Neurovascular: reports of generalized weakness and some shaky walking All medications have been reviewed Physical exam: Gen: This is a 32-year-old male who is awake, alert and oriented x 3, well- developed, well-nourished. HEENT: Head is atraumatic, normocephalic. Pupils equal, round. Sclerae is anicteric. NECK: Supple. No JVD. No lymphadenopathy. No thyromegaly. LUNGS: Clear to auscultation. No wheezes or rhonchi. No intercostal retractions. HEART: Regular rate and rhythm. No murmur. ABDOMEN: Soft. Bowel sounds are present. No masses. No tenderness. EXTREMITIES: No pedal edema. No calf tenderness. NEUROLOGICAL: Patient is awake, alert and oriented x3. Cranial nerves 2 through 12 are grossly intact. Assessment: -Alcohol withdrawal with acute alcohol delirium tremens -Anxiety disorder; currently on IV Ativan -History of Andie Muñoz syndrome -Continued ongoing nicotine dependence -History of seizures, alcohol withdrawal induced -Hyperkalemia; improved -GI prophylaxis -DVT prophylaxis; SCDs -No code Plan: Patient is continued on CIWA protocol and continues to require IV Ativan as p atient continues to have significant withdrawal symptoms. Patient reporting difficulty with ambulation and will consult PT/OT therapy for evaluation Continue Librium taper and will start to titrate after tomorrow Patient evaluated by psychiatry and medications reviewed. Patient denies any suicidal ideation or thoughts of wanting to harm himself or others Patient is adamant about being no code. Lengthy discussion was had about CODE STATUS and the meaning of no code and patient reports to be in full understanding and continues to request to be no code. Case management/social work following as plan is to return to [place] for continued rehab Continue Librium taper, wean off IV Ativan, oral Ativan as needed has been ordered as well. Will consult PT/OT therapy for evaluation Discharge planning in the next 24 to 48 hours The impression and plan of care has been dictated by Carolina Mora, Nurse Practitioner as directed. Dr. Maximilian MD I have performed a history and examination and MDM of this patient, discussed the same with the dictator, and agree with the dictator's assessment and plan as written ,documented as a scribe. Based on total visit time, I have performed more than 50% of the visit. Objective - Vital Signs Vital signs: Vital Signs Temp 97.5 F L 09/18/23 02:07 Pulse 51 L 09/18/23 02:07 Resp 17 09/18/23 02:07 BP 128/67 02/21/24 02:07 Pulse Ox 96 09/18/23 02:07 FiO2 Intake & Output 09/17/23 09/17/23 09/18/23 06:59 18:59 06:59 Other: Voiding Method Toilet Toilet Urinal # Voids 2 5 - Labs CBC & Chem 7: 09/15/23 05:52 09/15/23 05:52
[2023-09-18 10:03] VITALS: RESP 18
[2023-09-18] MEDS: LORazepam 0.5 MG TAB PO PRN (10:43)
[2023-09-18 10:58] LABS: Basophils # (A) 0.06 X 10*3/uL (0.00-0.10); Basophils % (A) 0.8 %; Eosinophils # (A) 0.57 X 10*3/uL (0.04-0.35); Eosinophils % (A) 7.3 %; HCT 41.1 % (39.6-50.0); HGB 13.2 g/dL (13.0-17.0); Lymphocytes # (A) 3.35 X 10*3/uL (0.90-5.00); MCH 28.1 pg (27.0-32.0); MCHC 32.1 g/dL (32.0-37.0); MCV 87.4 FL (80.0-97.0); Mean Platelet Volume 10.5 FL (9.5-12.2); Monocytes # (A) 0.35 X 10*3/uL (0.20-1.00); Monocytes % (A) 4.5 %; NRBC Per 100 WBC 0 X 10*3/uL (0.00-0.01); Neutrophils # (A) 3.44 X 10*3/uL (1.80-7.70); Neutrophils % (A) 44.1 %; Platelet Count 256 X 10*3/uL (140-440); RDW 12.5 % (11.5-14.5); WBC 7.79 X 10*3/uL (4.50-10.00)
[2023-09-18 11:16] LABS: Magnesium 2.2 mg/dL (1.5-2.4)
[2023-09-18 11:46] LABS: BUN/Creat Ratio 24.43 Ratio (12.00-20.00); Blood Urea Nitrogen 17.1 mg/dL (9.0-27.0); Calcium 9.2 mg/dL (8.7-10.3); Carbon Dioxide 23.6 mmol/L (21.6-31.8); Chloride 108 mmol/L (96-109); Glucose 92 mg/dL (70-110); Potassium 4.6 mmol/L (3.5-5.5); Sodium 143 mmol/L (135-145)
[2023-09-18 14:10] VITALS: BP 108/74; PULSE 74; TEMP 97.4
--- NOTE | 2023-09-18 15:04 | P.PN ---
Subjective Progress Note Date: 09/15/23 32-year-old male with history of alcohol abuse and alcohol withdrawal seizures, presents to the ER for evaluation Patient presents today for evaluation regards to shaking weakness altered mental status hallucinations and not feeling well. Patient is having persistent symptoms here in the ER very shaky very lightheaded very dizzy with symptoms of diaphoresis. Patient is not able to provide much history Blood work completed in ED reveals a WBC of 7.3, hemoglobin of 12.9 and platelet count of 299, sodium 137, potassium 5.3, BUN/creatinine of 10/0.65, serum alcohol of less than 10 Objective - Vital Signs Vital signs: Vital Signs Temp 98.1 F 09/14/23 20:12 Pulse 41 L 09/14/23 20:12 Resp 17 09/14/23 20:12 BP 122/77 09/14/23 20:12 Pulse Ox 96 09/14/23 20:12 FiO2 Intake & Output 09/14/23 09/14/23 09/15/23 06:59 18:59 06:59 Weight 77.111 kg 77.111 kg - Exam - Constitutional General appearance: Present: average body habitus, cooperative, no acute distress - EENT Eyes: Present: anicteric sclerae, EOMI, PERRLA, normal appearance ENT: Present: hearing grossly normal, normal oropharynx Ears: bilateral: normal - Neck Neck: Present: normal ROM. Absent: lymphadenopathy, rigidity, thyromegaly Carotids: negative: bruit present Thyroid: bilateral: normal size, negative: enlarged, nodule - Respiratory Respiratory: bilateral: CTA, negative: rales, rhonchi, wheezing - Cardiovascular Rhythm: regular Heart sounds: normal: S1, S2 Abnormal Heart Sounds: Absent: systolic murmur, diastolic murmur - Gastrointestinal General gastrointestinal: Present: normal bowel sounds, soft. Absent: distended, organomegaly, tenderness - Genitourinary Genitourinary Comment(s): deferred - Integumentary Integumentary: Present: normal turgor. Absent: jaundiced, rash, ulcer - Neurologic Neurologic: Present: CNII-XII intact. Absent: focal deficits - Musculoskeletal Musculoskeletal: Present: gait normal, strength equal bilaterally - Psychiatric Psychiatric: Present: A&O x's 3, appropriate affect, intact judgment & insight - Labs CBC & Chem 7: 09/18/23 05:58 09/18/23 05:58 Labs: Abnormal Lab Results - Last 24 Hours (Table) 09/14/23 09/14/23 Range/Units 12:30 12:30 Hgb 12.9 L (13.0-17.5) gm/dL Potassium 5.3 H (3.5-5.1) mmol/L Creatinine 0.65 L (0.66-1.25) mg/dL Assessment and Plan Assessment: 1. Alcohol withdrawal delirium -Patient was extremely shaky and hallucinating upon arrival to ED -Has been placed on IV fluids in form of banana bag; CIWA protocol with Ativan -- Social service consult 2. Anxiety disorder; currently on IV Ativan 3. Hyperkalemia; patient has been placed on IV fluid; electrolytes closely and treat as needed DVT prophylaxis; SCDs CODE STATUS; full code
--- NOTE | 2023-09-21 19:42 | P.DS ---
Providers Date of admission: 09/14/23 16:59 Expected date of discharge: 09/18/23 Attending physician: Azar Hightower Consults: 09/14/23 16:59 Consult Physician Routine Consulting Provider: Perry Forrest Consult Reason/Comments: psych,ETOH Do you want consulting provider notified?: Already Contacted Primary care physician: Stated None Hospital Course: Final diagnosis -Alcohol withdrawal with acute alcohol delirium tremens -Anxiety disorder; currently on IV Ativan -History of Stone Muñoz syndrome -Continued ongoing nicotine dependence -History of seizures, alcohol withdrawal induced -Hyperkalemia; improved -GI prophylaxis -DVT prophylaxis; SCDs -No code Discharge disposition Patient is being discharged in a stable condition with guarded prognosis to [facility] for continued alcohol rehab. Patient will follow-up with his primary care provider in the outpatient setting upon discharge. Patient is to continue with Librium taper on discharge.. Total time taken is greater than 35 minutes. Hospital course This is a 32-year-old male who was recently admitted with alcohol withdrawal while at [facility]. Patient maintained on CIWA protocol along with Librium taper being monitored over the course of 3 days and was continued on IV Ativan along with tapering of Librium. Patient appears improved and is eating and will be returning to [facility]. Patient was evaluated by psychiatry recommending continuing current medications and close outpatient follow-up with [facility]. Please refer to other consultation notes for further HPI. Currently no reports of fredrick st pain, shortness of breath, or palpitations. Patient is afebrile. No reports of nausea or vomiting and patient is tolerating diet. Patient will be going back to [facility] rehab today. Guarded prognosis and high risk for readmissions given patient's continued alcohol abuse and noncompliance. Physical exam: Gen: This is a 32-year-old male who is awake, alert and oriented x 3, well-developed, well-nourished HEENT: Head is atraumatic, normocephalic. Pupils equal, round. Sclerae is anicteric. NECK: Supple. No JVD. No lymphadenopathy. No thyromegaly. LUNGS: Clear to auscultation. No wheezes or rhonchi. No intercostal retractions. HEART: Regular rate and rhythm. No murmur. ABDOMEN: Soft. Bowel sounds are present. No masses. No tenderness. EXTREMITIES: No pedal edema. No calf tenderness. NEUROLOGICAL: Patient is awake, alert and oriented x3. Cranial nerves 2 through 12 are grossly intact. Please refer to medication reconciliation sheet for a list of medications. The impression and plan of care has been dictated by Carolina Mora, Nurse Practitioner as directed. Dr. Maximilian MD I have performed a history and examination and MDM of this patient, discussed t he same with the dictator, and agree with the dictator's assessment and plan as written ,documented as a scribe. Based on total visit time, I have performed more than 50% of the visit. Patient Condition at Discharge: Fair Plan - Discharge Summary Discharge Rx Participant: No New Discharge Prescriptions: New chlordiazePOXIDE HCl [Librium] 25 mg PO TID #6 cap Folic Acid 1 mg PO DAILY #30 tab Continue LORazepam [Ativan] 1 - 2 mg PO Q4-6H PRN PRN Reason: detox/anxiety busPIRone HCl [Buspar] 10 mg PO TID@0615,1130,1630 Loperamide HCl [Imodium A-D] 4 mg PO QID PRN PRN Reason: Diarrhea Methadone [Dolophine] See Taper PO DIRECTED Ibuprofen [Motrin Ib] 600 mg PO Q6H PRN PRN Reason: Pain Or Fever > 100.5 traZODone HCL [Desyrel] 50 - 150 mg PO HS Thiamine [Vitamin B-1] 100 mg PO DAILY Acetaminophen Tab [Tylenol] 650 mg PO QID PRN PRN Reason: Pain Or Fever > 100.5 Escitalopram [Lexapro] 10 mg PO DAILY Chlorpheniramine Maleate [Chlor-Trimeton] 4 mg PO Q4H PRN PRN Reason: runny nose/allergy Calcium Phos/D3/Magnesium/Zinc [Ojowahh-Qpf-Lnda-Vitamin D3] 1 tab PO TID PRN PRN Reason: supplement Hyoscyamine Sulfate [Levsin] 0.125 mg PO QID PRN PRN Reason: cramping Mag Hydrox/Aluminum Hyd/Simeth [Mylanta Maximum Strength Liq] 30 ml PO Q4H PRN PRN Reason: GI UPSET Multivitamins, Thera [Multivitamin (formulary)] 1 tab PO DAILY ondansetron HCL [Zofran] 8 mg PO Q6H PRN PRN Reason: Nausea Discharge Medication List Acetaminophen Tab [Tylenol] 650 mg PO QID PRN 09/14/23 [History] Calcium Phos/D3/Magnesium/Zinc [Mketsts-Lxn-Apwq-Vitamin D3] 1 tab PO TID PRN 0 09/14/23 [History] Chlorpheniramine Maleate [Chlor-Trimeton] 4 mg PO Q4H PRN 09/14/23 [History] Escitalopram [Lexapro] 10 mg PO DAILY 09/14/23 [History] Hyoscyamine Sulfate [Levsin] 0.125 mg PO QID PRN 09/14/23 [History] Ibuprofen [Motrin Ib] 600 mg PO Q6H PRN 09/14/23 [History] LORazepam [Ativan] 1 - 2 mg PO Q4-6H PRN 09/14/23 [History] Loperamide HCl [Imodium A-D] 4 mg PO QID PRN 09/14/23 [History] Mag Hydrox/Aluminum Hyd/Simeth [Mylanta Maximum Strength Liq] 30 ml PO Q4H PRN 09/14/23 [History] Methadone [Dolophine] See Taper PO DIRECTED 09/14/23 [History] Multivitamins, Thera [Multivitamin (formulary)] 1 tab PO DAILY 09/14/23 [History] Thiamine [Vitamin B-1] 100 mg PO DAILY 09/14/23 [History] busPIRone HCl [Buspar] 10 mg PO TID@0615,1130,1630 09/14/23 [History] ondansetron HCL [Zofran] 8 mg PO Q6H PRN 09/14/23 [History] traZODone HCL [Desyrel] 50 - 150 mg PO HS 09/14/23 [History] Folic Acid 1 mg PO DAILY #30 tab 09/18/23 [Rx] chlordiazePOXIDE HCl [Librium] 25 mg PO TID #6 cap 09/18/23 [Rx] Follow up Appointment(s)/Referral(s): None,Stated [Primary Care Provider] - 1-2 days Patient Instructions/Handouts: Epilepsy (DC), Alcohol Withdrawal (DC) Activity/Diet/Wound Care/Special Instructions: Call [facility] at discharge to arrange transport: [phone], option 4, option 4 Continue avoiding all alcohol intake Continue Librium taper Follow-up with primary care provider on discharge Return back to [facility] for continued inpatient rehab. Discharge Disposition: OTHER INSTITUTION NOT DEFINED
== END 2023-09-18 14:04 | DRG 775 ==
LOC: EC 11:46 → 4SSUR 16:59 → OBSVTOIN 16:59 → 4SSUR 17:03 → UNDOADMOB 17:03 → 4SSUR 19:17 → INTOOBSV 09-16 09:50 → OBSVTOIN 09-16 09:50 → UNDODISIN 09-18 14:04
PROVIDERS: ADMIT Hospitalist; ATTEND Hospitalist
PROC: HZ2ZZZZ Detoxification Services for Substance Abuse Treatment (ICD-10-PCS; principal; 2023-09-14)
DX: F10.231 Alcohol dependence with withdrawal delirium (principal); G61.0 Guillain-Barre syndrome; R44.3 Hallucinations, unspecified; G40.909 Epilepsy, unspecified, not intractable, without status epilepticus; E87.5 Hyperkalemia; F10.221 Alcohol dependence with intoxication delirium; F32.9 Major depressive disorder, single episode, unspecified; F43.10 Post-traumatic stress disorder, unspecified; F17.210 Nicotine dependence, cigarettes, uncomplicated; Z71.6 Tobacco abuse counseling; F32.A Depression, unspecified; Z79.899 Other long term (current) drug therapy; Z91.199 Patient's noncompliance with other medical treatment and regimen due to unspecified reason
CPT/HCPCS: 36415; 80048; 80053; 80320; 83690; 83735; 84100; 85025; 96361; 96374; 96375; 99285

== ENCOUNTER 2023-09-21 13:23 | Emergency (ER) | payer OTHER ==
[2023-09-21 13:30] VITALS: BP 123/74; PULSE 75; RESP 18; TEMP 97.2
--- NOTE | 2023-09-21 13:41 | ED ---
Upper Extremity HPI - General Chief Complaint: Extremity Injury, Upper Stated Complaint: Fall, injury L wrist Time Seen by Provider: 09/21/23 13:40 Source: patient, RN notes reviewed Mode of arrival: ambulatory Limitations: no limitations - History of Present Illness Initial Comments: Patient is a 32-year-old male presented to ER with chief complaint of left wrist injury. Patient is currently at [facility] for alcohol abuse. He states he was sitting on his stage and was having very bad tremors which he fell at this stage landing on his left wrist. Patient is endorsing pain over ulnar styloid. Denies any paresthesias or limited range of motion. There is pain with wrist movement. Denies any other injuries. Patient is also requesting IM Ativan as he does not receive it at [facility] for alcohol withdrawals. Denies any other complaints at this time. - Related Data Home Medications Medication Instructions Recorded Confirmed Acetaminophen Tab [Tylenol] 650 mg PO QID PRN 09/14/23 09/14/23 Calcium Phos/D3/Magnesium/Zinc 1 tab PO TID PRN 09/14/23 09/14/23 [Kxbecoi-Kee-Nwoq-Vitamin D3] Chlorpheniramine Maleate 4 mg PO Q4H PRN 09/14/23 09/14/23 [Chlor-Trimeton] Escitalopram [Lexapro] 10 mg PO DAILY 09/14/23 09/14/23 Hyoscyamine Sulfate [Levsin] 0.125 mg PO QID PRN 09/14/23 09/14/23 Ibuprofen [Motrin Ib] 600 mg PO Q6H PRN 09/14/23 09/14/23 LORazepam [Ativan] 1 - 2 mg PO Q4-6H PRN 09/14/23 09/14/23 Loperamide HCl [Imodium A-D] 4 mg PO QID PRN 09/14/23 09/14/23 Mag Hydrox/Aluminum Hyd/Simeth 30 ml PO Q4H PRN 09/14/23 09/14/23 [Mylanta Maximum Strength Liq] Methadone [Dolophine] See Taper PO DIRECTED 09/14/23 09/14/23 Multivitamins, Thera [Multivitamin 1 tab PO DAILY 09/14/23 09/14/23 (formulary)] Thiamine [Vitamin B-1] 100 mg PO DAILY 09/14/23 09/14/23 busPIRone HCl [Buspar] 10 mg PO TID@0615,1130,1630 09/14/23 09/14/23 ondansetron HCL [Zofran] 8 mg PO Q6H PRN 09/14/23 09/14/23 traZODone HCL [Desyrel] 50 - 150 mg PO HS 09/14/23 09/14/23 Previous Rx's Medication Instructions Recorded Folic Acid 1 mg PO DAILY #30 tab 09/18/23 chlordiazePOXIDE HCl [Librium] 25 mg PO TID #6 cap 09/18/23 Allergies Allergy/AdvReac Type Severity Reaction Status Date / Time No Known Allergies Allergy Verified 09/21/23 13:29 Review of Systems ROS Statement: Those systems with pertinent positive or pertinent negative responses have been documented in the HPI. ROS Other: All systems not noted in ROS Statement are negative. Past Medical History Past Medical History: Seizure Disorder Additional Past Medical History / Comment(s): Destinee Ramos's. seizure with withdrawl History of Any Multi-Drug Resistant Organisms: None Reported Past Surgical History: No Surgical Hx Reported Additional Past Surgical History / Comment(s): Penile reconstructive surgery @ . hip replacement 06/20 estimated date Past Anesthesia/Blood Transfusion Reactions: No Reported Reaction Past Psychological History: Anxiety, Depression, PTSD Smoking Status: Current every day smoker Past Alcohol Use History: Abuse Past Drug Use History: Heroin, Prescription Drug Abuse General Exam Limitations: no limitations General appearance: alert, in no apparent distress, anxious, other (Patient havi ng moderate tremor and reporting hallucinations) Head exam: Present: atraumatic, normocephalic, normal inspection Respiratory exam: Present: normal lung sounds bilaterally. Absent: respiratory distress, wheezes, rales, rhonchi, stridor Cardiovascular Exam: Present: regular rate, normal rhythm, normal heart sounds. Absent: systolic murmur, diastolic murmur, rubs, gallop, clicks Extremities exam: Present: normal inspection, full ROM, tenderness (Tenderness to right ulnar styloid. 2+ right radial pulse. Sensation intact. Full active range of motion with pain.), normal capillary refill. Absent: pedal edema, joint swelling, calf tenderness Neurological exam: Present: alert, oriented X3, CN II-XII intact Psychiatric exam: Present: normal affect, normal mood Skin exam: Present: warm, dry, intact, normal color. Absent: rash Course Vital Signs 09/21/23 13:26 Temperature 97.2 F L Pulse Rate 75 Respiratory 18 Rate Blood Pressure 123/74 O2 Sat by Pulse 98 Oximetry Medical Decision Making - Medical Decision Making Was pt. sent in by a medical professional or institution (, [facility]AT[facility], SENIOR VALIDATION ENGINEER, urgent care, hospital, or jail...) When possible be specific @ -Patient sent here from [facility] due to fall and left wrist injury. Did you speak to anyone other than the patient for history (EMS, parent, family, police, friend...)? What history was obtained from this source @ -No Did you review nursing and triage notes (agree or disagree)? Why? @ -I reviewed and agree with nursing and triage notes Were old charts reviewed (outside hosp., previous admission, EMS record, old EKG, old radiological studies, urgent care reports/EKG's, jail records)? Report findings @ -No old charts were reviewed Differential Diagnosis (chest pain, altered mental status, abdominal pain women, abdominal pain men, vaginal bleeding, weakness, fever, dyspnea, syncope, headache, dizziness, GI bleed, back pain, seizure, CVA, palpatations, mental health, musculoskeletal)? @ -Differential Musculoskeletal: Muscular strain, contusion, ligament sprain, fracture, arthritis, septic arthritis, bursitis, cellulitis, muscle spasm, nerve compression, DVT, arterial occlusion, herpes zoster, electrolyte abnormality, tumor.... This is not meant to be in all inclusive list EKG interpreted by me (3pts min.). @ -None X-rays interpreted by me (1pt min.). @ -X-ray of left wrist interpreted by me shows no acute fractures or dislocations. CT interpreted by me (1pt min.). @ -None done U/S interpreted by me (1pt. min.). @ -None done What testing was considered but not performed or refused? (CT, X-rays, U/S, labs)? Why? @ -None What meds were considered but not given or refused? Why? @ -None Did you discuss the management of the patient with other professionals (professionals i.e. , [facility], SENIOR VALIDATION ENGINEER, lab, RT, psych nurse, nursing home social worker, full roll inspector, teacher, deputy juvenile officer, wrapper caser)? Give summary @ -No Was smoking cessation discussed for >3mins.? @ -No Was critical care preformed (if so, how long)? @ -No Were there social determinants of health that impacted care today? How? (Homelessness, low income, unemployed, alcoholism, drug addiction, transportation, low edu. Level, literacy, decrease access to med. care, residential, rehab)? @ -Patient is currently residing at [facility] for alcoholism. Was there de-escalation of care discussed even if they declined (Discuss DNR or withdrawal of care, Hospice)? DNR status @ -No What co-morbidities impacted this encounter? (DM, HTN, Smoking, COPD, CAD, Cancer, CVA, ARF, Chemo, Hep., AIDS, mental health diagnosis, sleep apnea, morbid obesity)? @ -Alcoholism, mental health Was patient admitted / discharged? Hospital course, mention meds given and rou te, prescriptions, significant lab abnormalities, going to OR and other pertinent info. @ -Discharge. Patient is a 32-year-old male presented to ER with chief complaint of left wrist injury. Patient is currently withdrawing from alcohol. History and physical exam were completed. Vitals stable. Patient in no signs of acute distress. Patient did have a moderate tremor on exam. Patient's left upper extremity neurovascularly intact. Full active range of motion. X-rays obtained negative for acute fractures or dislocations. Patient did receive 1 mg IM Ativan for tremor as he reports he has not received any since being discharged here for alcohol withdrawls. He states he has been hallucinating and having tremors which caused this injury. Patient placed in an Oskar wrap. Return parameters were discussed. Patient be discharged stable condition back to [facility]. Patient expressed understanding and agreement with care plan. Undiagnosed new problem with uncertain prognosis? @ -No Drug Therapy requiring intensive monitoring for toxicity (Heparin, Nitro, Insulin, Cardizem)? @ -No Were any procedures done? @ -No Diagnosis/symptom? @ -Left wrist injury Acute, or Chronic, or Acute on Chronic? @ -Acute Uncomplicated (without systemic symptoms) or Complicated (systemic symptoms)? @ -Uncomplicated Side effects of treatment? @ -No Exacerbation, Progression, or Severe Exacerbation? @ -No Poses a threat to life or bodily function? How? (Chest pain, USA, OR, pneumonia, PE, COPD, DKA, ARF, appy, cholecystitis, CVA, Diverticulitis, Homicidal, Suicidal, threat to staff... and all critical care pts) @ -No - Radiology Data Radiology results: report reviewed, image reviewed Disposition Clinical Impression: Left wrist injury Disposition: HOME SELF-CARE Condition: Stable Additional Instructions: Please follow-up with PCP in the next 1 to 2 days. Return to ER for any new or worsening symptoms. Is patient prescribed a controlled substance at d/c from ED?: No Referrals: None,Stated [Primary Care Provider] - 1-2 days Time of Disposition: 14:20
--- NOTE | 2023-09-21 14:11 | XR ---
EXAMINATION TYPE: XR wrist complete LT DATE OF EXAM: 09/21/2023 1:58 PM CLINICAL INDICATION:Male, 32 years old with history of fall injury; [facility] COMPARISON: None TECHNIQUE: XR wrist complete LT; examined in the Frontal, navicular, lateral, and oblique. FINDINGS: No acute osseous pathology, joint dislocation, or joint effusion. No evidence of any soft tissue swelling is seen. IMPRESSION: No acute osseous pathology.
[2023-09-21] MEDS: LORazepam 2 MG/ML INJ IM STA (14:53)
== END 2023-09-21 15:14 | disposition home or self-care (01) ==
LOC: EC 13:23
DX: S69.92XA Unspecified injury of left wrist, hand and finger(s), initial encounter (principal); F41.9 Anxiety disorder, unspecified; F32.A Depression, unspecified; F17.200 Nicotine dependence, unspecified, uncomplicated; Z79.899 Other long term (current) drug therapy; X58.XXXA Exposure to other specified factors, initial encounter
CPT/HCPCS: 73110; 99283; 96372; J2060

== ENCOUNTER 2023-09-23 22:59 | Emergency (ER) | payer OTHER ==
[2023-09-23] MEDS: SODIUM CHLORIDE 0.9% 1,000 ML IV STA (23:35)
--- NOTE | 2023-09-23 23:36 | ED ---
General Adult HPI - General Chief complaint: Weakness Stated complaint: sweating,shaking Time Seen by Provider: 09/23/23 23:06 Source: patient, EMS, RN notes reviewed, old records reviewed Mode of arrival: EMS Limitations: no limitations - History of Present Illness Initial comments: 32-year-old male presenting with lightheadedness, near syncopal episode. Patient presenting from [facility] where he is undergoing rehabilitation for EtOH. His last drink was over 2 weeks ago. He states that he became lightheaded, diaphoretic and felt like he was going to vomit. He denied associated chest pain. No palpitations. No abdominal pain. He states he has had a poor appetite and has not been eating much. No fever. - Related Data Home Medications Medication Instructions Recorded Confirmed Acetaminophen Tab [Tylenol] 650 mg PO QID PRN 09/14/23 09/14/23 Calcium Phos/D3/Magnesium/Zinc 1 tab PO TID PRN 09/14/23 09/14/23 [Mjryomz-Brn-Wnol-Vitamin D3] Chlorpheniramine Maleate 4 mg PO Q4H PRN 09/14/23 09/14/23 [Chlor-Trimeton] Escitalopram [Lexapro] 10 mg PO DAILY 09/14/23 09/14/23 Hyoscyamine Sulfate [Levsin] 0.125 mg PO QID PRN 09/14/23 09/14/23 Ibuprofen [Motrin Ib] 600 mg PO Q6H PRN 09/14/23 09/14/23 LORazepam [Ativan] 1 - 2 mg PO Q4-6H PRN 09/14/23 09/14/23 Loperamide HCl [Imodium A-D] 4 mg PO QID PRN 09/14/23 09/14/23 Mag Hydrox/Aluminum Hyd/Simeth 30 ml PO Q4H PRN 09/14/23 09/14/23 [Mylanta Maximum Strength Liq] Methadone [Dolophine] See Taper PO DIRECTED 09/14/23 09/14/23 Multivitamins, Thera [Multivitamin 1 tab PO DAILY 09/14/23 09/14/23 (formulary)] Thiamine [Vitamin B-1] 100 mg PO DAILY 09/14/23 09/14/23 busPIRone HCl [Buspar] 10 mg PO TID@0615,1130,1630 09/14/23 09/14/23 ondansetron HCL [Zofran] 8 mg PO Q6H PRN 09/14/23 09/14/23 traZODone HCL [Desyrel] 50 - 150 mg PO HS 09/14/23 09/14/23 Previous Rx's Medication Instructions Recorded Folic Acid 1 mg PO DAILY #30 tab 09/18/23 chlordiazePOXIDE HCl [Librium] 25 mg PO TID #6 cap 09/18/23 Allergies Allergy/AdvReac Type Severity Reaction Status Date / Time No Known Allergies Allergy Verified 09/23/23 23:24 Review of Systems ROS Statement: Those systems with pertinent positive or pertinent negative responses have been documented in the HPI. ROS Other: All systems not noted in ROS Statement are negative. Past Medical History Past Medical History: Seizure Disorder Additional Past Medical History / Comment(s): Tee Mitchell, Destinee's. seizure with withdrawl History of Any Multi-Drug Resistant Organisms: None Reported Past Surgical History: No Surgical Hx Reported Additional Past Surgical History / Comment(s): Penile reconstructive surgery @ . hip replacement 06/20 estimated date Past Anesthesia/Blood Transfusion Reactions: No Reported Reaction Past Psychological History: Anxiety, Depression, PTSD Smoking Status: Current every day smoker Past Alcohol Use History: Abuse Past Drug Use History: Heroin, Prescription Drug Abuse General Exam Limitations: no limitations General appearance: alert, in no apparent distress Head exam: Present: atraumatic, normocephalic Eye exam: Present: normal appearance, PERRL ENT exam: Present: mucous membranes moist Neck exam: Present: normal inspection. Absent: tenderness, meningismus Respiratory exam: Present: normal lung sounds bilaterally. Absent: respiratory distress, wheezes Cardiovascular Exam: Present: regular rate, normal rhythm GI/Abdominal exam: Present: soft. Absent: distended, tenderness, guarding Extremities exam: Present: normal inspection, normal capillary refill. Absent: calf tenderness Neurological exam: Present: alert, oriented X3, CN II-XII intact. Absent: motor sensory deficit Psychiatric exam: Present: normal affect, normal mood Skin exam: Present: warm, dry, intact Course Vital Signs 09/23/23 23:00 Temperature 98.0 F Pulse Rate 65 Respiratory 22 Rate Blood Pressure 126/69 O2 Sat by Pulse 100 Oximetry Medical Decision Making - Medical Decision Making Was pt. sent in by a medical professional or institution (, TABATHA, MICRO PHOTOGRAPHER, urgent care, hospital, or retirement...) When possible be specific @ -Sent from [facility] Did you speak to anyone other than the patient for history (EMS, parent, family, police, friend...)? What history was obtained from this source @ -No Did you review nursing and triage notes (agree or disagree)? Why? @ -I reviewed and agree with nursing and triage notes Were old charts reviewed (outside hosp., previous admission, EMS record, old EKG, old radiological studies, urgent care reports/EKG's, retirement records)? Report findings @ -No old charts were reviewed Differential Diagnosis (chest pain, altered mental status, abdominal pain women, abdominal pain men, vaginal bleeding, weakness, fever, dyspnea, syncope, headache, dizziness, GI bleed, back pain, seizure, CVA, palpatations, mental health, musculoskeletal)? @Differential Syncope: Valvular disease, hypertrophic cardiomyopathy, pulmonary embolism, tamponade, tachycardia, bradycardia, NM, hypovolemia, hemorrhage, dissection, anemia, intracranial hemorrhage, seizure, hypoglycemia, carbon monoxide poisoning, this is not meant to be an all-inclusive list. EKG interpreted by me (3pts min.). @ -Sinus bradycardia rate of 48, AR interval 178, QRS duration 120, QTc [address] segment changes. X-rays interpreted by me (1pt min.). @ -None done CT interpreted by me (1pt min.). @ -None done U/S interpreted by me (1pt. min.). @ -None done What testing was considered but not performed or refused? (CT, X-rays, U/S, labs)? Why? @ -None What meds were considered but not given or refused? Why? @ -None Did you discuss the management of the patient with other professionals (professionals i.e. , TABATHA, MICRO PHOTOGRAPHER, lab, RT, psych nurse, nephrology social worker, concrete wall grinder operator, teacher, tactical deception plans officer, employment case manager)? Give summary @ -No Was smoking cessation discussed for >3mins.? @ -No Was critical care preformed (if so, how long)? @ -No Were there social determinants of health that impacted care today? How? (Homelessness, low income, unemployed, alcoholism, drug addiction, transportation, low edu. Level, literacy, decrease access to med. care, [facility], rehab)? @ -No Was there de-escalation of care discussed even if they declined (Discuss DNR or withdrawal of care, Hospice)? DNR status @ -No What co-morbidities impacted this encounter? (DM, HTN, Smoking, COPD, CAD, Cancer, CVA, ARF, Chemo, Hep., AIDS, mental health diagnosis, sleep apnea, morbid obesity)? @ -None Was patient admitted / discharged? Hospital course, mention meds given and route, prescriptions, significant lab abnormalities, going to OR and other pertinent info. @8-year-old male with near syncopal episode. Patient well-appearing with stable vitals. Nonfocal neurologic exam. He is in sinus bradycardia which appears to be baseline for this patient. Has a mild anemia otherwise normal CBC, normal electrolytes, negative troponin. Patient stable for discharge at this time. He should maintain hydration. Undiagnosed new problem with uncertain prognosis? @ -No Drug Therapy requiring intensive monitoring for toxicity (Heparin, Nitro, Insulin, Cardizem)? @ -No Were any procedures done? @ -No Diagnosis/symptom? @ -[Near syncope Acute, or Chronic, or Acute on Chronic? @Acute Uncomplicated (without systemic symptoms) or Complicated (systemic symptoms)? @ -Default Side effects of treatment? @ -No Exacerbation, Progression, or Severe Exacerbation? @ -No Poses a threat to life or bodily function? How? (Chest pain, USA, NM, pneumonia, PE, COPD, DKA, ARF, appy, cholecystitis, CVA, Diverticulitis, Homicidal, Suicidal, threat to staff... and all critical care pts) @ -[Low risk - Lab Data Result diagrams: 09/23/23 23:24 09/23/23 23:24 Lab Results 09/23/23 09/23/23 09/23/23 Range/Units 23:24 23:24 23:24 WBC 7.3 (3.8-10.6) k/uL RBC 4.31 (4.30-5.90) m/uL Hgb 12.3 L (13.0-17.5) gm/dL Hct 36.6 L (39.0-53.0) % MCV 85.1 (80.0-100.0) fL MCH 28.6 (25.0-35.0) pg MCHC 33.6 (31.0-37.0) g/dL RDW 13.2 (11.5-15.5) % Plt Count 222 (150-450) k/uL MPV 8.0 Neutrophils % 47 % Lymphocytes % 41 % Monocytes % 4 % Eosinophils % 5 % Basophils % 1 % Neutrophils # 3.4 (1.3-7.7) k/uL Lymphocytes # 3.0 (1.0-4.8) k/uL Monocytes # 0.3 (0-1.0) k/uL Eosinophils # 0.4 (0-0.7) k/uL Basophils # 0.0 (0-0.2) k/uL PT 10.3 (10.0-12.5) sec INR 0.9 (<1.2) APTT 27.2 (22.0-30.0) sec Sodium 138 (137-145) mmol/L Potassium 4.2 (3.5-5.1) mmol/L Chloride 109 H (98-107) mmol/L Carbon Dioxide 25 (22-30) mmol/L Anion Gap 4 mmol/L BUN 14 (9-20) mg/dL Creatinine 0.64 L (0.66-1.25) mg/dL Est GFR (CKD-EPI)AfAm >90 (>60 ml/min/1.73 sqM) Est GFR (CKD-EPI)NonAf >90 (>60 ml/min/1.73 sqM) Glucose 81 (74-99) mg/dL Calcium 9.1 (8.4-10.2) mg/dL Magnesium 2.0 (1.6-2.3) mg/dL Total Bilirubin 0.3 (0.2-1.3) mg/dL AST 41 (17-59) U/L ALT 40 (4-49) U/L Alkaline Phosphatase 79 (38-126) U/L Troponin I (0.000-0.034) ng/mL Total Protein 6.5 (6.3-8.2) g/dL Albumin 4.0 (3.5-5.0) g/dL 09/23/23 Range/Units 23:24 WBC (3.8-10.6) k/uL RBC (4.30-5.90) m/uL Hgb (13.0-17.5) gm/dL Hct (39.0-53.0) % MCV (80.0-100.0) fL MCH (25.0-35.0) pg MCHC (31.0-37.0) g/dL RDW (11.5-15.5) % Plt Count (150-450) k/uL MPV Neutrophils % % Lymphocytes % % Monocytes % % Eosinophils % % Basophils % % Neutrophils # (1.3-7.7) k/uL Lymphocytes # (1.0-4.8) k/uL Monocytes # (0-1.0) k/uL Eosinophils # (0-0.7) k/uL Basophils # (0-0.2) k/uL PT (10.0-12.5) sec INR (<1.2) APTT (22.0-30.0) sec Sodium (137-145) mmol/L Potassium (3.5-5.1) mmol/L Chloride (98-107) mmol/L Carbon Dioxide (22-30) mmol/L Anion Gap mmol/L BUN (9-20) mg/dL Creatinine (0.66-1.25) mg/dL Est GFR (CKD-EPI)AfAm (>60 ml/min/1.73 sqM) Est GFR (CKD-EPI)NonAf (>60 ml/min/1.73 sqM) Glucose (74-99) mg/dL Calcium (8.4-10.2) mg/dL Magnesium (1.6-2.3) mg/dL Total Bilirubin (0.2-1.3) mg/dL AST (17-59) U/L ALT (4-49) U/L Alkaline Phosphatase (38-126) U/L Troponin I <0.012 (0.000-0.034) ng/mL Total Protein (6.3-8.2) g/dL Albumin (3.5-5.0) g/dL Disposition Clinical Impression: Near syncope Disposition: HOME SELF-CARE Condition: Fair Instructions (If sedation given, give patient instructions): Near Syncope (ED) Is patient prescribed a controlled substance at d/c from ED?: No Referrals: None,Stated [Primary Care Provider] - 1-2 days Time of Disposition: 00:14
[2023-09-23 23:43] VITALS: TEMP 98
[2023-09-23 23:43] LABS: Basophils % (A) 1 %; Eosinophils # (A) 0.4 k/uL (0-0.7); Eosinophils % (A) 5 %; HCT 36.6 % (39.0-53.0); HGB 12.3 gm/dL (13.0-17.5); Lymphocytes % (A) 41 %; MCH 28.6 pg (25.0-35.0); MCHC 33.6 g/dL (31.0-37.0); MCV 85.1 fL (80.0-100.0); Monocytes # (A) 0.3 k/uL (0-1.0); Monocytes % (A) 4 %; Neutrophils # (A) 3.4 k/uL (1.3-7.7); Neutrophils % (A) 47 %; Platelet Count 222 k/uL (150-450); RBC 4.31 m/uL (4.30-5.90); RDW 13.2 % (11.5-15.5); WBC 7.3 k/uL (3.8-10.6)
[2023-09-23 23:52] LABS: INR 0.9 (<1.2); Partial Thromboplastin Time 27.2 sec (22.0-30.0); Prothrombin Time 10.3 sec (10.0-12.5)
[2023-09-23 23:53] LABS: ALT 40 U/L (4-49); AST 41 U/L (17-59); African American GFR (CKD) >90 (>60 ml/min/1.73 sqM); Alkaline Phosphatase 79 U/L (38-126); Anion Gap 4 mmol/L; Blood Urea Nitrogen 14 mg/dL (9-20); Calcium 9.1 mg/dL (8.4-10.2); Carbon Dioxide 25 mmol/L (22-30); Chloride 109 mmol/L (98-107); Glucose 81 mg/dL (74-99); Non-African American GFR(CKD) >90 (>60 ml/min/1.73 sqM); Potassium 4.2 mmol/L (3.5-5.1); Sodium 138 mmol/L (137-145); Total Bilirubin 0.3 mg/dL (0.2-1.3); Total Protein 6.5 g/dL (6.3-8.2)
[2023-09-24 00:58] VITALS: BP 111/73; PULSE 60; RESP 20
== END 2023-09-24 00:35 | disposition home or self-care (01) ==
LOC: EC 22:59
DX: R55 Syncope and collapse (principal); R00.1 Bradycardia, unspecified; F17.200 Nicotine dependence, unspecified, uncomplicated; F41.9 Anxiety disorder, unspecified; F32.A Depression, unspecified; F15.90 Other stimulant use, unspecified, uncomplicated; Z79.899 Other long term (current) drug therapy
CPT/HCPCS: 36415; 80053; 83735; 84484; 85025; 85610; 85730; 93005; 96360; 99285